=== PATIENT | male | born 1935 | race Caucasian/White ===

== ENCOUNTER 2021-08-14 19:27 | Inpatient (IN) | payer BC, MEDICARE ==
[2021-08-14] MEDS ORDERED: SODIUM CHLORIDE 0.9% 1,000 ML IV STA (21:31)
[2021-08-14] MEDS ORDERED: ONDANSETRON 4 MG/2 ML VIAL IVP STA (21:31)
[2021-08-14] MEDS ORDERED: MORPHINE SULFATE 4 MG/ML SYRINGE IV STA (21:31)
[2021-08-14 21:56] LABS: Basophils % (A) 0 %; Eosinophils # (A) 0.1 k/uL (0-0.7); Eosinophils % (A) 1 %; HCT 36.3 % (39.0-53.0); HGB 12.3 gm/dL (13.0-17.5); Lymphocytes # (A) 0.7 k/uL (1.0-4.8); Lymphocytes % (A) 7 %; MCH 32.7 pg (25.0-35.0); MCHC 33.9 g/dL (31.0-37.0); MCV 96.5 fL (80.0-100.0); Mean Platelet Volume 7.5; Monocytes # (A) 0.7 k/uL (0-1.0); Monocytes % (A) 8 %; Neutrophils # (A) 7.6 k/uL (1.3-7.7); Neutrophils % (A) 82 %; Platelet Count 217 k/uL (150-450); RBC 3.76 m/uL (4.30-5.90); RDW 13.7 % (11.5-15.5); WBC 9.3 k/uL (3.8-10.6)
[2021-08-14 22:07] LABS: Calcium 9.1 mg/dL (8.4-10.2); Magnesium 1.9 mg/dL (1.6-2.3); Phosphorus 2.7 mg/dL (2.5-4.5); Potassium 4.9 mmol/L (3.5-5.1); Total Bilirubin 0.5 mg/dL (0.2-1.3); Total Protein 7.7 g/dL (6.3-8.2)
--- NOTE | 2021-08-14 22:59 | ED ---
Abdominal Pain HPI - General Chief Complaint: Abdominal Pain Stated Complaint: RT side pain, SOB Time Seen by Provider: 08/14/21 21:21 Source: patient Mode of arrival: wheelchair Limitations: no limitations - Related Data Home Medications Medication Instructions Recorded Confirmed Albuterol Inhaler [Ventolin Hfa 2 puff INHALATION RT-QID PRN 08/14/21 08/14/21 Inhaler] Dipyridamole [Persantine] 75 mg PO BID 08/14/21 08/14/21 Enalapril Maleate 10 mg PO DAILY 08/14/21 08/14/21 HYDROcodone/APAP 10-325MG [[place] 1 tab PO QID PRN 08/14/21 08/14/21 10-325] Simvastatin [Zocor] 20 mg PO DAILY 08/14/21 08/14/21 Tamsulosin HCl [Flomax] 0.4 mg PO DAILY 08/14/21 08/14/21 Allergies Allergy/AdvReac Type Severity Reaction Status Date / Time No Known Allergies Allergy Verified 08/14/21 23:16 Review of Systems ROS Statement: Those systems with pertinent positive or pertinent negative responses have been documented in the HPI. ROS Other: All systems not noted in ROS Statement are negative. Past Medical History Past Medical History: Hypertension History of Any Multi-Drug Resistant Organisms: None Reported Past Surgical History: Back Surgery Past Psychological History: No Psychological Hx Reported Smoking Status: Former smoker Past Alcohol Use History: None Reported Past Drug Use History: None Reported General Exam Limitations: no limitations Course Vital Signs 08/14/21 08/14/21 08/14/21 21:10 22:29 22:40 Temperature 101.0 F H Pulse Rate 109 H 102 H Respiratory 22 18 Rate Blood Pressure 140/86 108/74 O2 Sat by Pulse 90 L 60 L Oximetry 08/14/21 08/15/21 22:45 00:55 Temperature 98.0 F Pulse Rate 106 H Respiratory 19 Rate Blood Pressure 103/54 O2 Sat by Pulse 94 L 96 Oximetry Medical Decision Making - Lab Data Result diagrams: 08/14/21 21:47 08/14/21 21:47 Lab Results 08/14/21 08/14/21 08/14/21 Range/Units 21:47 21:47 21:47 WBC 9.3 (3.8-10.6) k/uL RBC 3.76 L (4.30-5.90) m/uL Hgb 12.3 L (13.0-17.5) gm/dL Hct 36.3 L (39.0-53.0) % MCV 96.5 (80.0-100.0) fL MCH 32.7 (25.0-35.0) pg MCHC 33.9 (31.0-37.0) g/dL RDW 13.7 (11.5-15.5) % Plt Count 217 (150-450) k/uL MPV 7.5 Neutrophils % 82 % Lymphocytes % 7 % Monocytes % 8 % Eosinophils % 1 % Basophils % 0 % Neutrophils # 7.6 (1.3-7.7) k/uL Lymphocytes # 0.7 L (1.0-4.8) k/uL Monocytes # 0.7 (0-1.0) k/uL Eosinophils # 0.1 (0-0.7) k/uL Basophils # 0.0 (0-0.2) k/uL D-Dimer (<0.60) mg/L FEU Sodium 139 (137-145) mmol/L Potassium 4.9 (3.5-5.1) mmol/L Chloride 102 (98-107) mmol/L Carbon Dioxide 30 (22-30) mmol/L Anion Gap 7 mmol/L BUN 47 H (9-20) mg/dL Creatinine 1.96 H (0.66-1.25) mg/dL Est GFR (CKD-EPI)AfAm 36 (>60 ml/min/1.73 sqM) Est GFR (CKD-EPI)NonAf 31 (>60 ml/min/1.73 sqM) Glucose 126 H (74-99) mg/dL Plasma Lactic Acid Tejinder 1.4 (0.7-2.0) mmol/L Calcium 9.1 (8.4-10.2) mg/dL Phosphorus 2.7 (2.5-4.5) mg/dL Magnesium 1.9 (1.6-2.3) mg/dL Total Bilirubin 0.5 (0.2-1.3) mg/dL AST 22 (17-59) U/L ALT 16 (4-49) U/L Alkaline Phosphatase 103 (38-126) U/L Lactate Dehydrogenase (313-618) U/L C-Reactive Protein (<1.0) mg/dL Total Protein 7.7 (6.3-8.2) g/dL Albumin 4.0 (3.5-5.0) g/dL Amylase 98 (30-110) U/L Lipase 241 (23-300) U/L Coronavirus (PCR) (Not Detectd) 08/14/21 08/14/21 08/14/21 Range/Units 21:47 23:56 23:58 WBC (3.8-10.6) k/uL RBC (4.30-5.90) m/uL Hgb (13.0-17.5) gm/dL Hct (39.0-53.0) % MCV (80.0-100.0) fL MCH (25.0-35.0) pg MCHC (31.0-37.0) g/dL RDW (11.5-15.5) % Plt Count (150-450) k/uL MPV Neutrophils % % Lymphocytes % % Monocytes % % Eosinophils % % Basophils % % Neutrophils # (1.3-7.7) k/uL Lymphocytes # (1.0-4.8) k/uL Monocytes # (0-1.0) k/uL Eosinophils # (0-0.7) k/uL Basophils # (0-0.2) k/uL D-Dimer 1.89 H (<0.60) mg/L FEU Sodium (137-145) mmol/L Potassium (3.5-5.1) mmol/L Chloride (98-107) mmol/L Carbon Dioxide (22-30) mmol/L Anion Gap mmol/L BUN (9-20) mg/dL Creatinine (0.66-1.25) mg/dL Est GFR (CKD-EPI)AfAm (>60 ml/min/1.73 sqM) Est GFR (CKD-EPI)NonAf (>60 ml/min/1.73 sqM) Glucose (74-99) mg/dL Plasma Lactic Acid Tejinder (0.7-2.0) mmol/L Calcium (8.4-10.2) mg/dL Phosphorus (2.5-4.5) mg/dL Magnesium (1.6-2.3) mg/dL Total Bilirubin (0.2-1.3) mg/dL AST (17-59) U/L ALT (4-49) U/L Alkaline Phosphatase (38-126) U/L Lactate Dehydrogenase 459 (313-618) U/L C-Reactive Protein 3.8 H (<1.0) mg/dL Total Protein (6.3-8.2) g/dL Albumin (3.5-5.0) g/dL Amylase (30-110) U/L Lipase (23-300) U/L Coronavirus (PCR) Not Detected (Not Detectd) Disposition Clinical Impression: Fever, Abdominal pain, Hypoxia, ARF (acute renal failure) Disposition: ADMITTED IP TO THIS [facility] Condition: Serious Is patient prescribed a controlled substance at d/c from ED?: No Referrals: Randi Ruiz DO [Primary Care Provider] - 1-2 days
[2021-08-14] MEDS ORDERED: ACETAMINOPHEN TAB 500 MG TAB PO STA (23:16)
[2021-08-14] MEDS ORDERED: HYDROmorphone 1 MG/ML 1 ML SYRINGE IVP STA (23:16)
--- NOTE | 2021-08-14 23:50 | CT ---
EXAMINATION TYPE: CT abdomen pelvis wo con DATE OF EXAM: 08/14/2021 COMPARISON: Abdominal pain HISTORY: right side abd pain that radiates to back CT DLP: 1023.4 mGycm Automated exposure control for dose reduction was used. Images obtained from the diaphragm to the floor the pelvis with no contrast. There are some patchy infiltrate and atelectasis at both lung bases. Heart size is normal. There is n o pericardial effusion. There is no pleural effusion. Liver is intact. Gallbladder is intact. The bile ducts are not dilated. Spleen is intact. There is no evidence of pancreatic mass. Stomach shows small hiatal hernia. There is no adrenal mass. Kidneys have normal size. There is no hydronephrosis. Ureters are not dilat ed. There is no retroperitoneal adenopathy. Bladder distends smoothly. There is no inguinal hernia. There are multiple sigmoid diverticula. There is no sign of diverticulitis. Appendix not seen. No sign of thickened appendix. There is no mesenteric edema. There is no ascites or free air. There is no sign of a bowel obstructio n. There is moderately severe multilevel lumbar spondylotic changes. There is compression deformity of L 3 vertebra and also to a lesser extent L2 vertebra. There is endplate spurring and encroachment on th e spinal canal. There is laminectomy defect at the level of the encroachment. There is moderately sev ere bony spinal stenosis. There is calcified posterior disc herniation at L2-3 and L3-4. The bony pelvis is intact. The hip joints are intact. There is slight lumbar levoscoliosis. IMPRESSION: Mild interstitial infiltrates and atelectasis at the lung bases. No acute abnormality within the abdomen pelvis. Sigmoid diverticulosis. Significant spondylotic changes in the lumbar spine with bony spinal stenosis and osteosclerosis and mild compression deformities.
--- NOTE | 2021-08-15 00:02 | XR ---
EXAMINATION TYPE: XR chest 1V portable DATE OF EXAM: 08/14/2021 COMPARISON: NONE HISTORY: Short of breath TECHNIQUE: Single view FINDINGS: There is some mild atelectasis at the lung bases. There is no heart failure. Heart size is fairly normal. There are no hilar masses. Thoracic aorta is atheromatous. There is moderate arthritic change in the shoulder joints. IMPRESSION: There is some mild atelectasis at the lung bases and more on the right side. Minimal righ t basilar pulmonary infiltrate is possible.
[2021-08-15 00:53] LABS: C Reactive Protein 3.8 mg/dL (<1.0)
[2021-08-15] MEDS ORDERED: HEPARIN SODIUM 1,000 UN/ML (10ML VL) IV PRN (01:30)
[2021-08-15] MEDS ORDERED: ALBUTEROL NEBULIZED 2.5 MG/3 ML INHALATION STA (01:30)
[2021-08-15] MEDS ORDERED: HEPARIN SODIUM 1,000 UN/ML (10ML VL) IV ONE (01:30)
[2021-08-15] MEDS ORDERED: NALOXONE 0.4 MG/ML 1 ML VIAL IV PRN (01:32)
[2021-08-15] MEDS ORDERED: ONDANSETRON 4 MG/2 ML VIAL IVP PRN (01:32)
[2021-08-15] MEDS ORDERED: MORPHINE SULFATE 4 MG/ML SYRINGE IV PRN (01:32)
[2021-08-15] MEDS: HEPARIN SOD,PORK IN 0.45% NACL 25,000 UNIT in 0.45% NACL 1 250ML.BAG IV SCH ×2 (01:48→23:26)
[2021-08-15 02:11] LABS: Appearance,Urine Clear (Clear); Bilirubin,Urine Negative (Negative); Blood,Urine Negative (Negative); Color,Urine Light Yellow; Glucose,Urine (UA) Negative (Negative); Ketones,Urine Negative (Negative); Leukocyte Esterase,Urine Negative (Negative); Nitrite,Urine Negative (Negative); Protein,Urine Negative (Negative); Specific Gravity,Urine 1.008 (1.001-1.035); Urobilinogen,Urine <2.0 mg/dL (<2.0)
[2021-08-15] MEDS: SODIUM CHLORIDE 0.9% 1,000 ML IV SCH ×3 (02:56→23:28)
--- NOTE | 2021-08-15 07:47 | US ---
EXAMINATION TYPE: US venous doppler duplex LE BI DATE OF EXAM: 08/15/2021 7:30 AM COMPARISON: NONE CLINICAL HISTORY: DVT. Elevated D-Dimer SIDE PERFORMED: bilateral TECHNIQUE: The lower extremity deep venous system is examined utilizing real time linear array sonog pipo with graded compression, doppler sonography and color-flow sonography. VESSELS IMAGED: Common Femoral Vein Deep Femoral Vein Greater Saphenous Vein * Femoral Vein Popliteal Vein Small Saphenous Vein * Proximal Calf Veins (* superficial vessels) Right Leg: no evidence of DVT Left Leg: no evidence of DVT Grayscale, color doppler, spectral doppler imaging performed of the deep veins of the bilateral lower extremities. There is normal flow, compressibility, vascular waveforms. IMPRESSION: No ultrasound evidence for acute DVT in either lower extremity.
--- NOTE | 2021-08-15 07:50 | US ---
EXAMINATION TYPE: US abdomen APPY DATE OF EXAM: 08/15/2021 COMPARISON: CT abdomen and pelvis one day earlier CLINICAL HISTORY: Pain. RLQ pain APPENDIX Is the appendix seen in its entirety from the proximal cecum to distal end: no Is there inflammatory changes or free fluid present: no Scanning of the right lower quadrant fails to show normal or abnormal appendix. No suspicious focal f luid collection or vascularity/inflammatory change the seen during real-time scanning. Color imaging not saved to PACS. Appendix not well seen on corresponding CT felt to be very small caliber extending inferiorly. No kelvin rounding inflammatory change noted on CT and patient has good surrounding intraperitoneal fat includi ng at base of cecum. IMPRESSION: As above.
--- NOTE | 2021-08-15 08:52 | NM ---
EXAMINATION TYPE: NM pul perfusion DATE OF EXAM: 08/15/2021 COMPARISON: Chest x-ray 08/14/2021 HISTORY: Shortness of breath Following administration of 5.1 mCi Tc 99m MAA. Images obtained post injection. FINDINGS: No ventilation images are submitted. There is a perfusion defect within the right lung. Without venti lation images probability cannot be assessed. IMPRESSION: There is a perfusion abnormality within the lateral margin of the right lung. Pulmonary embolism in t he differential diagnosis.
[2021-08-15] MEDS: PANTOPRAZOLE 40 MG/10 ML VIAL IV SCH (08:54)
--- NOTE | 2021-08-15 11:17 | P.CNPUL ---
History of Present Illness Consult date: 08/15/21 Reason for consult: hypoxemia History of present illness: This is an 85-year-old male patient, who was brought into the emergency department today because of pain. According to the family was at the bedside, his pain is chronic and the patient has diffuse pain and more specifically in his lower back for many years. The patient undergone previous spine surgery and the patient has a pain stimulator in place that was inserted at least 5 years ago. Nevertheless, the patient has been under poor control and the patient has been taking Shirley for pain control. Over the past 2 days, the pain has gotten worse. The exact location of the pain is not clear. The patient was pointing to his abdomen mostly on the right. At the same time he pointed out to his neck and upper back area. He is a very unreliable historian. In fact I feel like he is confused at this point in time and is unable to provide any history. His does work and when she came home from work she found them and this condition she opted to bring him to the hospital. Here in the hospital, the patient has started on some further investigation. The patient was found to be febrile at the time of admission. Note that he has no seizure activity. No neck stiffness. No focal neurological deficit. At time he is shaking and is a bit restless in bed. A white cell count of 9.3 with hemoglobin of 12.3, d-dimer was at 1.89, electrolytes were normal and the patient a BUN of 47 with a creatinine of 1.96 consistent with an acute kidney injury. Lactic acid level is at 1.4, LFTs are normal, UA is normal,COVID 19 testing came back negative. Chest x-ray showed some limited atelectatic changes in lung base on the right. No evidence of any pneumonia. VQ scan showed some perfusion defect abnormalities and for that reason the patient was started on IV heparin. Stephanie gleason, the presentation is not typical of pulmonary embolism and the patient has a Doppler of the lower extremity that has been negative for any DVTs. No reported falls. No reported head trauma. No significant cough or sputum production. No nausea. No vomiting. No diarrhea. No abdominal pain. Amylase and lipase have been within normal limits. LFTs are within normal limits. Glucose at 126. Patient is currently on IV fluids in the form of normal saline at the rate of 75 mL an hour and the patient is also on IV heparin per emergency room physicians. Review of Systems ROS unobtainable: due to mental status Past Medical History Past Medical History: Hypertension, Musculoskeletal Disorder (chronic back pain, pain stimulator), Prostate Disorder History of Any Multi-Drug Resistant Organisms: None Reported Past Surgical History: Back Surgery Past Psychological History: No Psychological Hx Reported Smoking Status: Former smoker Past Alcohol Use History: None Reported Past Drug Use History: None Reported Medications and Allergies Home Medications Medication Instructions Recorded Confirmed Type Albuterol Inhaler [Ventolin Hfa 2 puff INHALATION RT-QID PRN 08/14/21 08/14/21 History Inhaler] Dipyridamole [Persantine] 75 mg PO BID 08/14/21 08/14/21 History Enalapril Maleate 10 mg PO DAILY 08/14/21 08/14/21 History HYDROcodone/APAP 10-325MG [Shirley 1 tab PO QID PRN 08/14/21 08/14/21 History 10-325] Simvastatin [Zocor] 20 mg PO DAILY 08/14/21 08/14/21 History Tamsulosin HCl [Flomax] 0.4 mg PO DAILY 08/14/21 08/14/21 History Allergies Allergy/AdvReac Type Severity Reaction Status Date / Time No Known Allergies Allergy Verified 08/14/21 23:16 Physical Exam Vitals: Vital Signs Temp Pulse Pulse Resp BP BP Pulse Ox 08/15/21 08:00 96 08/15/21 06:02 96 92 L 08/15/21 05:25 98.4 F 124 H 18 124/74 90 L 08/15/21 04:21 97.5 F L 146 H 18 142/100 95 08/15/21 02:42 104 H 08/15/21 02:36 101 H 08/15/21 00:55 98.0 F 106 H 19 103/54 96 08/14/21 22:45 94 L 08/14/21 22:40 60 L 08/14/21 22:29 102 H 18 108/74 08/14/21 21:10 101.0 F H 109 H 22 140/86 90 L Intake and Output 08/14/21 08/15/21 08/15/21 22:59 06:59 14:59 Other: Weight 79.379 kg the patient is oriented to his . Nevertheless, he is unable to answer questions appropriately. At times he is more confused and shaky and restless in bed. For that reason, I will give he is 1-2 at max. Head exam was generally normal. There was no scleral icterus or corneal arcus. Mucous membranes were moist. Neck was supple and without jugular venous distension, thyromegaly, or carotid bruits. Carotids were easily palpable bilaterally. There was no adenopathy. Lungs sounds are diminished breath sound and the patient has symmetrical breath sounds bilaterally. Cardiac exam revealed the PMI to be normally situated and sized. The rhythm was regular and no extrasystoles were noted during several minutes of auscultation. The first and second heart sounds were normal and physiologic splitting of the second heart sound was noted. There were no murmurs, rubs, clicks, or gallops. Abdominal exam revealed normal bowel sounds. The abdomen was soft, non-tender, and without masses, organomegaly, or appreciable enlargement of the abdominal aorta. The patient has a pain stimulator pocket over the left lateral anterior abdominal wall Examination of the extremities revealed easily palpable radial, femoral and pedal pulses. There was no cyanosis, clubbing or edema. Examination of the skin revealed no evidence of significant rashes, suspicious appearing nevi or other concerning lesions. Neurologically the patient is confused, his speech is slightly garbled. No focal neurological deficits. He is able to move all 4 extremities. Gait has not been assessed. Motor function is obviously diminished in all 4 extremities and there is global weakness. Pupils are equal reactive to light. Results - Laboratory Findings CBC and BMP: 08/14/21 21:47 08/14/21 21:47 PT/INR, D-dimer D-Dimer 1.89 mg/L FEU (<0.60) H 08/14/21 23:58 Abnormal lab findings: Abnormal Labs 08/14/21 08/14/21 08/14/21 21:47 21:47 21:47 RBC 3.76 L Hgb 12.3 L Hct 36.3 L Lymphocytes # 0.7 L APTT D-Dimer BUN 47 H Creatinine 1.96 H Glucose 126 H C-Reactive Protein 3.8 H 08/14/21 08/15/21 23:58 08:54 RBC Hgb Hct Lymphocytes # APTT 34.7 H D-Dimer 1.89 H BUN Creatinine Glucose C-Reactive Protein - Diagnostic Findings Chest x-ray: image reviewed Assessment and Plan Plan: 1 Acute febrile illness on that investigation. The patient was also noted to be slightly hypoxic. Further investigation was done for pulmonary embolism. Overall clinical suspicion for PE is low. D-dimer is mildly elevated. Doppler of the lower extremity has been negative. CT angiogram and not been done as the patient has an underlying acute kidney injury. Underlying pneumonia of the right lower lobe cannot be completely excluded. The patient will be kept on a combination of Rocephin and Zithromax for now. IV heparin was also initiated at the emergency department. Further investigations to follow. Pronestyl level is pending. 2 chronic back pain in addition to diffuse body aches and furthermore the patien t is complaining of neck and mid thoracic pain along with his chronic back pain. The patient has a pain stimulator to his lumbar spine. No indication of any swelling or erythema along the spine. This is to be further investigated. The patient has been taking Shirley on outpatient basis. No evidence of any drug overdose at this point in time 3 altered mentation, that investigation 4 acute kidney injury. 5 history of hypertension 6 hyperlipidemia 7 BPH Plan Continue with oxygen supplementation Continue IV heparin pending further workup and I would like to go obtain a CT angiogram once the patient's renal function stabilizes Normal saline at the rate of 75 mL an hour IV Rocephin and Zithromax CAT scan of the C-spine, thoracic spine and the lumbar spine, without contrast Computed tomography scan of the head without contrast Urine drug screen Blood cultures Neurology consultation We'll continue to follow
[2021-08-15] MEDS: ACETAMINOPHEN TAB 325 MG TAB PO PRN (11:46)
--- NOTE | 2021-08-15 13:12 | P.GSCN ---
History of Present Illness Consult date: 08/15/21 History of present illness: CHIEF COMPLAINT: Abdominal pain and shortness of breath HISTORY OF PRESENT ILLNESS: The patient is a 85-year-old male who presented to the emergency department with complaints of abdominal pain and shortness of breath. He has a past medical history including hypertension. Gen. surgery was consulted for abdominal pain. He states that began approximately one week ago, the pain has been intermittent and described as a sharp pain mostly in his right lower quadrant. Patient states he actually has no pain at this time. He denied any fevers or chills at home. Denied any associated nausea or vomiting. He reports his last bowel movement on Thursday. He states he normally goes daily however he states that he has been feeling slightly constipated the last week or so. On admission he was noted to have a max temperature of 101.0. He presented with hypoxia and is on a clear liters of nasal cannula with saturation at 92%. He states his last colonoscopy was greater than 5 years ago and does not believe it was significant for any abnormal findings. Patient was noted to have an elevated d-dimer on admission and a pulmonary perfusion study was performed stating perfusion abnormality within the lateral margin of the right lung. Pulmonary embolism in the differential diagnosis. Patient underwent a CT of the abdomen and pelvis with findings of mild interstitial infiltrates and atelectasis at the lung bases. No acute abnormality within the abdomen and pelvis. Sigmoid diverticulosis. Admitting labs WBC 9.3 hemoglobin 12.3 platelet count 217,000 d-dimer was 1.9 sodium 139 potassium 4.9 BUN 47 creatinine 1.96 glucose 126 total bilirubin 0.5 AST 22 ALT 16 103 PAST MEDICAL HISTORY: Hypertension, chronic low back pain PAST SURGICAL HISTORY: Back surgery, pain stimulator MEDICATIONS: See list. ALLERGIES: See list. SOCIAL HISTORY: No illicit drug use. Former smoker REVIEW OF SYSTEMS: CONSTITUTIONAL: Denies fever or chills. HEENT: Denies blurred vision, vision changes, or eye pain. Denies hemoptysis ENDOCRINE: Denies heat or cold intolerance. CARDIOVASCULAR: Denies chest pain or pressure. RESPIRATORY: No shortness of breath. GASTROINTESTINAL: Abdominal pain, right lower quadrant. Denies nausea or vomiting. NEURO: Denies history of seizures. PSYCH: No depression or suicidal ideation HEMATOLOGIC: Denies bleeding disorders. LYMPHATIC: The patient denies any lumps and bumps around the neck. GENITOURINARY: Denies any blood in urine or increased urinary frequency. MUSCULOSKELETAL: Denies myalgias. Denies joint swelling. Chronic low back pain. Worsening SKIN: Denies pruitis. Denies rash. PHYSICAL EXAM: VITAL SIGNS: Reviewed GENERAL: Well-developed in no acute distress. HEENT: No sclera icterus. Extraocular movements grossly intact. Moist buccal mucosa. Head is atraumatic, normocephalic. Hears conversational speech. No nasal drainage. NECK: Supple without lymphadenopathy. CHEST: Non-labored respirations and equal bilateral excursions. CARDIOVASCULAR: Palpable 2+ radial pulses. ABDOMEN: Soft. Nondistended. Mild tenderness right lower quadrant. MUSCULOSKELETAL: No clubbing or cyanosis. NEUROLOGIC: No focal or lateralizing signs. Cranial nerves II through XII grossly intact. PSYCH: Appropriate affect. Alert and oriented to person, place and time. SKIN: Well perfused. Good skin turgor. LABORATORY DATA: WBC 9.3 hemoglobin 12.3 platelet count 217,000 d-dimer 1.89 Sodium 139 potassium 4.9 BUN 47 creatinine 1.96 glucose 126 magnesium 1.9 Total bilirubin 0.5 AST 22 ALT 16 alkaline phosphatase 103 amylase 98 lipase 241 C reactive protein 3.8 IMAGING: CT abdomen pelvis: Mild interstitial infiltrates and atelectasis at the lung bases. No acute abnormality within the abdomen and pelvis. Sigmoid diverticulosis. Significant spondylytic changes in the lumbar spine with bony spinal stenosis and osteosclerosis and mild compression deformities Abdominal ultrasound Limited: Right lower quadrant fails to show normal or abnormal appendix. No suspicious focal fluid collection or vascularity/inflammatory change seen during real-time scanning. ASSESSMENT: 1. Abdominal pain 2. Fever 3. Hypoxia 4. Pulmonary perfusion scan low probability of pulmonary embolism 5. Chronic back pain PLAN: -Patient may have regular diet -Patient is clinically improved with abdominal pain, there is no indication for any surgical intervention. -We'll continue to follow The impression and plan of care has been dictated as directed. Dr. Catherine I performed a history and examination of this patient, discussed the same with the dictator. I agree with the dictator's note ,documented as a scribe. Any additional findings or plans will be noted. Past Medical History Past Medical History: Hypertension History of Any Multi-Drug Resistant Organisms: None Reported Past Surgical History: Back Surgery Past Psychological History: No Psychological Hx Reported Smoking Status: Former smoker Past Alcohol Use History: None Reported Past Drug Use History: None Reported Medications and Allergies Home Medications Medication Instructions Recorded Confirmed Type Albuterol Inhaler [Ventolin Hfa 2 puff INHALATION RT-QID PRN 08/14/21 08/14/21 History Inhaler] Dipyridamole [Persantine] 75 mg PO BID 08/14/21 08/14/21 History Enalapril Maleate 10 mg PO DAILY 08/14/21 08/14/21 History HYDROcodone/APAP 10-325MG [[place] 1 tab PO QID PRN 08/14/21 08/14/21 History 10-325] Simvastatin [Zocor] 20 mg PO DAILY 08/14/21 08/14/21 History Tamsulosin HCl [Flomax] 0.4 mg PO DAILY 08/14/21 08/14/21 History Allergies Allergy/AdvReac Type Severity Reaction Status Date / Time No Known Allergies Allergy Verified 08/14/21 23:16 Surgical - Exam Vital Signs Temp Pulse Resp BP Pulse Ox 101.0 F H 109 H 22 140/86 90 L 08/14/21 21:10 08/14/21 21:10 08/14/21 21:10 08/14/21 21:10 08/14/21 21:10 Results - Labs 08/14/21 21:47 08/14/21 21:47 Abnormal Lab Results - Last 24 Hours (Table) 08/14/21 08/14/21 08/14/21 Range/Units 21:47 21:47 21:47 RBC 3.76 L (4.30-5.90) m/uL Hgb 12.3 L (13.0-17.5) gm/dL Hct 36.3 L (39.0-53.0) % Lymphocytes # 0.7 L (1.0-4.8) k/uL D-Dimer (<0.60) mg/L FEU BUN 47 H (9-20) mg/dL Creatinine 1.96 H (0.66-1.25) mg/dL Glucose 126 H (74-99) mg/dL C-Reactive Protein 3.8 H (<1.0) mg/dL 08/14/21 Range/Units 23:58 RBC (4.30-5.90) m/uL Hgb (13.0-17.5) gm/dL Hct (39.0-53.0) % Lymphocytes # (1.0-4.8) k/uL D-Dimer 1.89 H (<0.60) mg/L FEU BUN (9-20) mg/dL Creatinine (0.66-1.25) mg/dL Glucose (74-99) mg/dL C-Reactive Protein (<1.0) mg/dL Diabetes panel 08/14/21 Range/Units 21:47 Sodium 139 (137-145) mmol/L Potassium 4.9 (3.5-5.1) mmol/L Chloride 102 (98-107) mmol/L Carbon Dioxide 30 (22-30) mmol/L BUN 47 H (9-20) mg/dL Creatinine 1.96 H (0.66-1.25) mg/dL Glucose 126 H (74-99) mg/dL Calcium 9.1 (8.4-10.2) mg/dL AST 22 (17-59) U/L ALT 16 (4-49) U/L Alkaline Phosphatase 103 (38-126) U/L Total Protein 7.7 (6.3-8.2) g/dL Albumin 4.0 (3.5-5.0) g/dL Calcium panel 08/14/21 Range/Units 21:47 Calcium 9.1 (8.4-10.2) mg/dL Phosphorus 2.7 (2.5-4.5) mg/dL Albumin 4.0 (3.5-5.0) g/dL Pituitary panel 08/14/21 Range/Units 21:47 Sodium 139 (137-145) mmol/L Potassium 4.9 (3.5-5.1) mmol/L Chloride 102 (98-107) mmol/L Carbon Dioxide 30 (22-30) mmol/L BUN 47 H (9-20) mg/dL Creatinine 1.96 H (0.66-1.25) mg/dL Glucose 126 H (74-99) mg/dL Calcium 9.1 (8.4-10.2) mg/dL Adrenal panel 08/14/21 Range/Units 21:47 Sodium 139 (137-145) mmol/L Potassium 4.9 (3.5-5.1) mmol/L Chloride 102 (98-107) mmol/L Carbon Dioxide 30 (22-30) mmol/L BUN 47 H (9-20) mg/dL Creatinine 1.96 H (0.66-1.25) mg/dL Glucose 126 H (74-99) mg/dL Calcium 9.1 (8.4-10.2) mg/dL Total Bilirubin 0.5 (0.2-1.3) mg/dL AST 22 (17-59) U/L ALT 16 (4-49) U/L Alkaline Phosphatase 103 (38-126) U/L Total Protein 7.7 (6.3-8.2) g/dL Albumin 4.0 (3.5-5.0) g/dL
--- NOTE | 2021-08-15 21:45 | P.HPIM ---
History of Present Illness H&P Date: 08/15/21 Chief Complaint: pain, fever Nikolai Shabazz is an 85 yo M with PMH of HLD, chronic back pain who presented to the ED with worsening pain over the past few days as well as cough and fever. He states that he has been experiencing R sided abdominal pain for approximately 4 days, reports it comes and goes and currently is not present. He denies nausea, vomiting, constipation or diarrhea. he does complains of chronic back pain for which he takes [place]. He states in the last day or so he developed sweats and cough in addition to his pain and his brought him in for ev aluation. On presentation he was febrile, tachycardic, WBC 9.3, Cr 1.96, pro- calcitonin 0.15. CT abd/pelvis with no acute process, sigmoid diverticulosis. D- dimer elevated to 1.89, V/Q scan performed and possible filling defect. Review of Systems All systems: negative Constitutional: Reports fever, Reports malaise, Reports weakness, Denies chills Eyes: denies blurred vision, denies pain Ears, nose, mouth and throat: Denies headache, Denies sore throat Cardiovascular: Denies chest pain, Denies shortness of breath Respiratory: Reports cough Gastrointestinal: Denies abdominal pain, Denies diarrhea, Denies nausea, Denies vomiting Musculoskeletal: Denies myalgias Integumentary: Denies pruritus, Denies rash Neurological: Denies numbness, Denies weakness Psychiatric: Denies anxiety, Denies depression Endocrine: Denies fatigue, Denies weight change Past Medical History Past Medical History: Hypertension History of Any Multi-Drug Resistant Organisms: None Reported Past Surgical History: Back Surgery Past Psychological History: No Psychological Hx Reported Smoking Status: Former smoker Past Alcohol Use History: None Reported Past Drug Use History: None Reported Medications and Allergies Home Medications Medication Instructions Recorded Confirmed Type Albuterol Inhaler [Ventolin Hfa 2 puff INHALATION RT-QID PRN 08/14/21 08/14/21 History Inhaler] Dipyridamole [Persantine] 75 mg PO BID 08/14/21 08/14/21 History Enalapril Maleate 10 mg PO DAILY 08/14/21 08/14/21 History HYDROcodone/APAP 10-325MG [[place] 1 tab PO QID PRN 08/14/21 08/14/21 History 10-325] Simvastatin [Zocor] 20 mg PO DAILY 08/14/21 08/14/21 History Tamsulosin HCl [Flomax] 0.4 mg PO DAILY 08/14/21 08/14/21 History Allergies Allergy/AdvReac Type Severity Reaction Status Date / Time No Known Allergies Allergy Verified 08/14/21 23:16 Physical Exam Vitals: Vital Signs Temp Pulse Pulse Resp BP BP Pulse Ox 08/15/21 20:00 99.2 F 96 18 118/88 96 08/15/21 17:43 78 18 114/69 98 08/15/21 15:32 80 20 96/58 96 08/15/21 13:16 99.8 F H 101 H 18 95/59 89 L 08/15/21 11:45 119/95 08/15/21 11:43 102 F H 112 H 18 90 L 08/15/21 08:00 96 08/15/21 06:02 96 92 L 08/15/21 05:25 98.4 F 124 H 18 124/74 90 L 08/15/21 04:21 97.5 F L 146 H 18 142/100 95 08/15/21 02:42 104 H 08/15/21 02:36 101 H 08/15/21 00:55 98.0 F 106 H 19 103/54 96 08/14/21 22:45 94 L 08/14/21 22:40 60 L 08/14/21 22:29 102 H 18 108/74 Intake and Output 08/15/21 08/15/21 08/15/21 06:59 14:59 22:59 Intake Total 217.892 Balance 217.892 Intake: Intake, IV Titration 217.892 Amount Heparin Sod,Pork in 0.45% 217.892 NaCl 25,000 unit In 0.45 % NaCl 1 250ml.bag @ 18 UNITS/KG/HR 14.288 mls/hr IV .[id number] [facility] Rx#: [id number] General: well nourished, well developed, NAD. Vitals reviewed Eyes: PERRL, EOMI, conjunctiva normal HENT: normocephalic, mucus membranes moist Neck: supple, no JVD Lungs: normal respiratory effort, no wheezes or rales CV: Regular rate and rhythm, no murmur. Peripheral pulses 2+ Abdomen: soft, nondistended, no organomegaly Lymph: no cervical or axillary LAD Skin: warm and dry. Neuro: A&Ox3, normal mood and affect Results CBC & Chem 7: 08/14/21 21:47 08/14/21 21:47 Labs: Abnormal Lab Results - Last 24 Hours (Table) 08/14/21 08/14/21 08/14/21 Range/Units 21:47 21:47 21:47 RBC 3.76 L (4.30-5.90) m/uL Hgb 12.3 L (13.0-17.5) gm/dL Hct 36.3 L (39.0-53.0) % Lymphocytes # 0.7 L (1.0-4.8) k/uL APTT (22.0-30.0) sec D-Dimer (<0.60) mg/L FEU BUN 47 H (9-20) mg/dL Creatinine 1.96 H (0.66-1.25) mg/dL Glucose 126 H (74-99) mg/dL C-Reactive Protein 3.8 H (<1.0) mg/dL Procalcitonin (0.02-0.09) ng/mL 08/14/21 08/14/21 08/15/21 Range/Units 21:47 23:58 08:54 RBC (4.30-5.90) m/uL Hgb (13.0-17.5) gm/dL Hct (39.0-53.0) % Lymphocytes # (1.0-4.8) k/uL APTT 34.7 H (22.0-30.0) sec D-Dimer 1.89 H (<0.60) mg/L FEU BUN (9-20) mg/dL Creatinine (0.66-1.25) mg/dL Glucose (74-99) mg/dL C-Reactive Protein (<1.0) mg/dL Procalcitonin 0.15 H (0.02-0.09) ng/mL Assessment and Plan Plan: 1. Community acquired pneumonia. Start rocephin, azithromycin. Pulmonology consult 2. Elevated d-dimer. Indeterminant V/Q scan. Possible PE. US for DVT negative a nd low suspicion at this time. Will plan for CTA with improvement in renal function. Continue heparin drip at this time 3. NEETA. IV fluids, follow labs closely 4. Abdominal pain. Suspect musculoskeletal. Surgery consult for further evaluation. No evidence of infection 5. Chronic back pain
[2021-08-15] MEDS ORDERED: AZITHROMYCIN 500 MG in SODIUM CHLORIDE 0.9% 250 ML IVPB SCH (22:00)
[2021-08-16] MEDS: SODIUM CHLORIDE 0.9% 1,000 ML IV SCH ×3 (04:20→17:19)
[2021-08-16 07:37] LABS: Basophils % (A) 0 %; Eosinophils % (A) 1 %; Lymphocytes # (A) 0.7 k/uL (1.0-4.8); Lymphocytes % (A) 14 %; MCH 33.2 pg (25.0-35.0); MCHC 32.9 g/dL (31.0-37.0); Macrocytosis Slight; Mean Platelet Volume 7.6; Monocytes # (A) 0.4 k/uL (0-1.0); Monocytes % (A) 8 %; Neutrophils # (A) 3.5 k/uL (1.3-7.7); Neutrophils % (A) 73 %; Platelet Count 159 k/uL (150-450); RBC 2.87 m/uL (4.30-5.90); RDW 13.5 % (11.5-15.5); WBC 4.8 k/uL (3.8-10.6)
[2021-08-16 07:45] LABS: HGB 9.5 gm/dL (13.0-17.5)
[2021-08-16 07:48] LABS: Albumin 2.9 g/dL (3.5-5.0); Calcium 8.1 mg/dL (8.4-10.2); Phosphorus 2.4 mg/dL (2.5-4.5); Potassium 4.9 mmol/L (3.5-5.1); Total Bilirubin 0.4 mg/dL (0.2-1.3)
[2021-08-16] MEDS: PANTOPRAZOLE 40 MG/10 ML VIAL IV SCH (09:41)
[2021-08-16] MEDS ORDERED: IPRATROPIUM-ALBUTEROL 3 ML NEB INHALATION PRN (10:28)
--- NOTE | 2021-08-16 10:49 | P.PN ---
Subjective Progress Note Date: 08/16/21 Nikolai Shabazz is an 85 yo M with PMH of HLD, chronic back pain who presented to the ED with worsening pain over the past few days as well as cough and fever. He states that he has been experiencing R sided abdominal pain for approximately 4 days, reports it comes and goes and currently is not present. He denies nausea, vomiting, constipation or diarrhea. he does complains of chronic back pain for which he takes [place]. He states in the last day or so he developed sweats and cough in addition to his pain and his brought him in for evaluation. On presentation he was febrile, tachycardic, WBC 9.3, Cr 1.96, pro- calcitonin 0.15. CT abd/pelvis with no acute process, sigmoid diverticulosis. D-dimer elevated to 1.89, V/Q scan performed and possible filling defect. 08/16/2021. RN reporting confusion throughout the night, patient pulling IVs out, taking off his oxygen at which time patient desatted to 86% on room air. Currently maintaining O2 sats in the 90s on 9 L. T-max 102, blood cultures ordered. Currently A & O X2. Telemetry sinus rhythm. Abdominal pain significantly improved. Evaluated by surgery with no surgical intervention recommended at this time. Anticoagulated on heparin drip, CTA remains on hold secondary to creatinine. Maintained on Rocephin and azithromycin. IV fluids currently running at 130/h, will decrease. Hemoglobin 9.5, platelets 159. Renal function improved, BUN 39 and creatinine 1.79. Objective - Vital Signs Vital signs: Vital Signs Temp 99.8 F H 08/16/21 07:30 Pulse 84 08/16/21 09:55 Resp 18 08/16/21 09:55 BP 114/69 08/16/21 09:55 Pulse Ox 92 L 08/16/21 09:55 Intake & Output 08/15/21 08/16/21 08/16/21 18:59 06:59 18:59 Intake Total 217.892 206.725 Balance 217.892 206.725 Intake: Intake, IV Titration 217.892 206.725 Amount Heparin Sod,Pork in 0.45% 217.892 106.725 NaCl 25,000 unit In 0.45 % NaCl 1 250ml.bag @ 18 UNITS/KG/HR 14.288 mls/hr IV .[id number] [facility] Rx#: [id number] cefTRIAXone 1 gm In 100 Sodium Chloride 0.9% 50 ml @ 100 mls/hr IVPB Q24H [facility] Rx#:[id number] - Exam General: Sitting up on stretcher, in the ER, NAD. Vitals reviewed Eyes: PERRL, EOMI, conjunctiva normal HENT: normocephalic, mucus membranes moist Neck: supple, no JVD Lungs: normal respiratory effort, bilateral bases diminished, no wheezes or r ales CV: Regular rate and rhythm, no murmur. Peripheral pulses 2+ Abdomen: soft, nondistended, nontender, no organomegaly,+BS Skin: warm and dry. Neuro: A&Ox2, normal mood and affect - Labs CBC & Chem 7: 08/16/21 06:58 08/16/21 06:58 Labs: Abnormal Lab Results - Last 24 Hours (Table) 08/14/21 08/15/21 08/16/21 Range/Units 21:47 23:41 06:58 RBC 2.87 L (4.30-5.90) m/uL Hgb 9.5 L D (13.0-17.5) gm/dL Hct 29.0 L (39.0-53.0) % MCV 101.0 H (80.0-100.0) fL Lymphocytes # 0.7 L (1.0-4.8) k/uL APTT 76.4 H (22.0-30.0) sec BUN (9-20) mg/dL Creatinine (0.66-1.25) mg/dL Calcium (8.4-10.2) mg/dL Phosphorus (2.5-4.5) mg/dL Total Protein (6.3-8.2) g/dL Albumin (3.5-5.0) g/dL Procalcitonin 0.15 H (0.02-0.09) ng/mL 08/16/21 08/16/21 Range/Units 06:58 06:58 RBC (4.30-5.90) m/uL Hgb (13.0-17.5) gm/dL Hct (39.0-53.0) % MCV (80.0-100.0) fL Lymphocytes # (1.0-4.8) k/uL APTT 35.7 H (22.0-30.0) sec BUN 39 H (9-20) mg/dL Creatinine 1.79 H (0.66-1.25) mg/dL Calcium 8.1 L (8.4-10.2) mg/dL Phosphorus 2.4 L (2.5-4.5) mg/dL Total Protein 6.0 L (6.3-8.2) g/dL Albumin 2.9 L (3.5-5.0) g/dL Procalcitonin (0.02-0.09) ng/mL Assessment and Plan Assessment: Acute community-acquired pneumonia, right lower lobe Acute hypoxic respiratory failure secondary to the above Fevers Delirium, Acute metabolic encephalopathy, secondary to all the above as well as ER, hospital environment. Elevated d-dimer with indeterminate VQ scan, possible PE. Low suspicion. NEETA Abdominal pain, suspect muscloskeletal Chronic back pain BPH History of nicotine dependence Plan: Continue current medication regime ,monitoring and symptomatic treatment. Persistent fevers, T-max 102, Blood cultures ordered. Continue dual antibiotics with both azithromycin and ceftriaxone. Decrease IV fluids down to 80 mL's per hour. Pro-calcitonin level pending. Maintain anticoagulation with heparin drip at this time, CTA pending improvement in renal function. Morphine discontinued, home pain management resumed.Close monitoring of renal function with repeat labs ordered for a.m. The impression and plan of care has been dictated as directed. : I performed a history and examination of this patient, discussed the same with the dictator. I agree with the dictator's note ,documented as a scribe. Any additional findings or plans will be noted.
--- NOTE | 2021-08-16 11:25 | P.PN ---
Subjective Progress Note Date: 08/16/21 This is an 85-year-old male patient, who was brought into the emergency departm ent today because of pain. According to the family was at the bedside, his pain is chronic and the patient has diffuse pain and more specifically in his lower back for many years. The patient undergone previous spine surgery and the patient has a pain stimulator in place that was inserted at least 5 years ago. Nevertheless, the patient has been under poor control and the patient has been taking Benjamin for pain control. Over the past 2 days, the pain has gotten worse. The exact location of the pain is not clear. The patient was pointing to his abdomen mostly on the right. At the same time he pointed out to his neck and upper back area. He is a very unreliable historian. In fact I feel like he is confused at this point in time and is unable to provide any history. His does work and when she came home from work she found them and this condition she opted to bring him to the hospital. Here in the hospital, the patient has started on some further investigation. The patient was found to be febrile at the time of admission. Note that he has no seizure activity. No neck sti ffness. No focal neurological deficit. At time he is shaking and is a bit restless in bed. A white cell count of 9.3 with hemoglobin of 12.3, d-dimer was at 1.89, electrolytes were normal and the patient a BUN of 47 with a creatinine of 1.96 consistent with an acute kidney injury. Lactic acid level is at 1.4, LFTs are normal, UA is normal,COVID 19 testing came back negative. Chest x-ray showed some limited atelectatic changes in lung base on the right. No evidence of any pneumonia. VQ scan showed some perfusion defect abnormalities and for that reason the patient was started on IV heparin. Nevertheless, the presentation is not typical of pulmonary embolism and the patient has a Doppler of the lower extremity that has been negative for any DVTs. No reported falls. No reported head trauma. No significant cough or sputum production. No nausea. No vomiting. No diarrhea. No abdominal pain. Amylase and lipase have been within normal limits. LFTs are within normal limits. Glucose at 126. Patient is currently on IV fluids in the form of normal saline at the rate of 75 mL an hour and the patient is also on IV heparin per emergency room physicians. Evaluation of 08/16/2021, the patient is more comfortable compared to yesterday. He is not complaining of much pain. He is responsive and his communicating. Denies having any shortness of breath. No pleurisy. No cough or sputum production. At times he is still confused. He remains a unreliable historian. I ordered a CAT scan of his neck and his spine yesterday and this was not completed and the patient declined to undergo the testing and this was not found. I also placed a consultation for urology and the patient has not been seen by neurology at. He is afebrile for now. The pro-calcitonin level was at 0.15. Creatinine is down to 1.7 with a mean of 39, sodium is at 138, PTT is therapeutic and is to be adjusted, white cell count is at 4.8 hemoglobin 9.5. Doppler of the lower extremity has also been negative. Objective - Vital Signs Vital signs: Vital Signs Temp 99.8 F H 08/16/21 07:30 Pulse 84 08/16/21 09:55 Resp 18 08/16/21 09:55 BP 114/69 08/16/21 09:55 Pulse Ox 92 L 08/16/21 09:55 Intake & Output 08/15/21 08/16/21 08/16/21 18:59 06:59 18:59 Intake Total 217.892 206.725 Balance 217.892 206.725 Intake: Intake, IV Titration 217.892 206.725 Amount Heparin Sod,Pork in 0.45% 217.892 106.725 NaCl 25,000 unit In 0.45 % NaCl 1 250ml.bag @ 18 UNITS/KG/HR 14.288 mls/hr IV .[id number] [facility] Rx#: [id number] cefTRIAXone 1 gm In 100 Sodium Chloride 0.9% 50 ml @ 100 mls/hr IVPB Q24H [facility] Rx#:[id number] - Exam the patient is oriented to his . Nevertheless, he is unable to answer questions appropriately. At times he is more confused and shaky and restless in bed. For that reason, I will give he is 1-2 at max. Head exam was generally normal. There was no scleral icterus or corneal arcus. Mucous membranes were moist. Neck was supple and without jugular venous distension, thyromegaly, or carotid bruits. Carotids were easily palpable bilaterally. There was no adenopathy. Lungs sounds are diminished breath sound and the patient has symmetrical breath sounds bilaterally. Cardiac exam revealed the PMI to be normally situated and sized. The rhythm was regular and no extrasystoles were noted during several minutes of auscultation. The first and second heart sounds were normal and physiologic splitting of the second heart sound was noted. There were no murmurs, rubs, clicks, or gallops. Abdominal exam revealed normal bowel sounds. The abdomen was soft, non-tender, and without masses, organomegaly, or appreciable enlargement of the abdominal aorta. The patient has a pain stimulator pocket over the left lateral anterior abdominal wall Examination of the extremities revealed easily palpable radial, femoral and pedal pulses. There was no cyanosis, clubbing or edema. Examination of the skin revealed no evidence of significant rashes, suspicious appearing nevi or other concerning lesions. Neurologically the patient is confused, his speech is slightly garbled. No focal neurological deficits. He is able to move all 4 extremities. Gait has not been assessed. Motor function is obviously diminished in all 4 extremities and there is global weakness. Pupils are equal reactive to light. - Labs CBC & Chem 7: 08/16/21 06:58 08/16/21 06:58 Labs: Abnormal Lab Results - Last 24 Hours (Table) 08/14/21 08/15/21 08/16/21 Range/Units 21:47 23:41 06:58 RBC 2.87 L (4.30-5.90) m/uL Hgb 9.5 L D (13.0-17.5) gm/dL Hct 29.0 L (39.0-53.0) % MCV 101.0 H (80.0-100.0) fL Lymphocytes # 0.7 L (1.0-4.8) k/uL APTT 76.4 H (22.0-30.0) sec BUN (9-20) mg/dL Creatinine (0.66-1.25) mg/dL Calcium (8.4-10.2) mg/dL Phosphorus (2.5-4.5) mg/dL Total Protein (6.3-8.2) g/dL Albumin (3.5-5.0) g/dL Procalcitonin 0.15 H (0.02-0.09) ng/mL 08/16/21 08/16/21 Range/Units 06:58 06:58 RBC (4.30-5.90) m/uL Hgb (13.0-17.5) gm/dL Hct (39.0-53.0) % MCV (80.0-100.0) fL Lymphocytes # (1.0-4.8) k/uL APTT 35.7 H (22.0-30.0) sec BUN 39 H (9-20) mg/dL Creatinine 1.79 H (0.66-1.25) mg/dL Calcium 8.1 L (8.4-10.2) mg/dL Phosphorus 2.4 L (2.5-4.5) mg/dL Total Protein 6.0 L (6.3-8.2) g/dL Albumin 2.9 L (3.5-5.0) g/dL Procalcitonin (0.02-0.09) ng/mL Assessment and Plan Plan: 1 Acute febrile illness on that investigation. The patient was also noted to be slightly hypoxic. Further investigation was done for pulmonary embolism. Overall clinical suspicion for PE is low. D-dimer is mildly elevated. Doppler of the lower extremity has been negative. CT angiogram and not been done as the patient has an underlying acute kidney injury. Underlying pneumonia of the right lower lobe cannot be completely excluded. The patient will be kept on a combination of Rocephin and Zithromax for now. IV heparin was also initiated at the emergency department. Further investigations to follow. Pro-calcitonin level today is at 0.18. 2 chronic back pain in addition to diffuse body aches and furthermore the patient is complaining of neck and mid thoracic pain along with his chronic back pain. The patient has a pain stimulator to his lumbar spine. No indication of any swelling or erythema along the spine. This is to be further investigated. The patient has been taking Benjamin on outpatient basis. No evidence of any drug overdose at this point in time 3 altered mentation, that investigation 4 acute kidney injury, improving 5 history of hypertension 6 hyperlipidemia 7 BPH 8 altered mentation, consider underlying dementia. The patient's mentation is improved compared to yesterday. No neck stiffness. Communicating and following commands although he continues to be a very unreliable historian. Plan Anemia workup and the fever workup is still in progress. The patient has not undergone a CAT scan of the head or the spine yet. He is clinically better. He is afebrile for now. He is responding to fluids. Creatinine is improved. I doubt the diagnosis of poor embolism. Will be given same antibiotic coverage for now. Awaiting cultures. Awaiting neurology consultation. Continue with oxygen supplementation Continue IV heparin pending further workup and I would like to go obtain a CT angiogram once the patient's renal function stabilizes Normal saline at the rate of 75 mL an hour IV Rocephin and Zithromax CAT scan of the C-spine, thoracic spine and the lumbar spine, without contrast Computed tomography scan of the head without contrast Urine drug screen Blood cultures Neurology consultation We'll continue to follow
[2021-08-16] MEDS: TAMSULOSIN 0.4 MG CAP.ER.24H PO SCH (11:35)
[2021-08-16] MEDS: ATORVASTATIN 10 MG TAB PO SCH (11:35)
[2021-08-16 12:41] LABS: Amphetamine Screen,Urine Not Detected (NotDetected); Barbiturate Screen,Urine Not Detected (NotDetected); Benzodiazepines Screen,Urine Not Detected (NotDetected); Cocaine Screen,Urine Not Detected (NotDetected); Methadone Screen, Urine Not Detected (NotDetected); Opiate Screen,Urine Detected (NotDetected); Oxycodone Screen, Urine Not Detected (NotDetected); Phencyclidine Screen,Urine Not Detected (NotDetected); Tricyclic Antidepressant,Urine Not Detected (NotDetected); Urn Cannabinoid Scrn Not Detected (NotDetected)
[2021-08-16] MEDS: IPRATROPIUM-ALBUTEROL 3 ML NEB INHALATION SCH ×3 (13:07→20:16)
[2021-08-16] MEDS: HYDROcodone/APAP 10-325MG 1 EACH TAB PO PRN (17:15)
--- NOTE | 2021-08-16 17:18 | P.CNNES ---
History of Present Illness Consult date: 08/16/21 Requesting physician: Seble Chen Reason for Consult: altered mental status History of Present Illness: This is an 85-year-old gentleman with medical history of hypertension, chronic low back s/p pain stimulator who presented to the emergency department on 08/14/2021 for pain. Neurology is consulted for altered mental status. Patient's is at bedside and helps with some of the history. Per the patient she stated that the patient the has been complaining of pain in the lower back as well as the as well as the anterior region of the lower abdomen but he is he feels it was a bone from the anterior region: All the way to the back going to the . Patient denied of any headaches, any nausea any vom iting. Denied of any focal weakness, numbness. He does complain of neck pain as well as lower back pain. During the hospital stay he presented with a temperature of 101.0 Fahrenheit got as high as 102 Fahrenheit. His oxygen saturation got as low as 86% during this hospital stay. The patient's his mentation has improved compared to earlier. Patient does not have any history of stroke or seizures. The patient's he the patient's complaining of neck pain as well. Of Note is seems the patient the had spinal surgery in his lower back has a pain stimulator inserted at least 5 years ago. He takes [place] for his pain control and he feels that the pain is getting worse per the record that. His white blood cell on presentation is 9.3 thousand the repeat is 4.8. His hemoglobin initially was 12.3 and a repeat it was 9.5 the. Social serum glucose is 126 and the plasma lactic acid venous 1.4. AST is 22 and ALT 16. Sodium is 139, creatinine is 1.96, calcium is 9.1, phosphorus 2.7, magnesium is 1.9. CRP is 3.8. Urinalysis negative for urinary tract infection. Urine drug screen is positive for opiates. Carr virus PCR was not detected. He had CT abdomen and pelvis and it's reported as no acute abnormality within the abdomen and pelvis. 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 Penis duplex of the lower extremities was negative for DVTs. pulmonary perfusion is reported as there is perfusion abnormality within the lateral margins of the right lung. Pulmonary embolism in the differential diagnosis at. As a result the patient is on IV heparin drip. As well as the patient is on Rocephin and Zithromax at. Pulmonary team is on board. Review of Systems Review of system: The 12 point system was reviewed and apparent positive and negative per HPI. Past Medical History Past Medical History: Hypertension History of Any Multi-Drug Resistant Organisms: None Reported Past Surgical History: Back Surgery Past Psychological History: No Psychological Hx Reported Smoking Status: Former smoker Past Alcohol Use History: None Reported Past Drug Use History: None Reported - Past Family History Father History Unknown: Yes Medications and Allergies Home Medications Medication Instructions Recorded Confirmed Type Albuterol Inhaler [Ventolin Hfa 2 puff INHALATION RT-QID PRN 08/14/21 08/14/21 History Inhaler] Dipyridamole [Persantine] 75 mg PO BID 08/14/21 08/14/21 History Enalapril Maleate 10 mg PO DAILY 08/14/21 08/14/21 History HYDROcodone/APAP 10-325MG [[place] 1 tab PO QID PRN 08/14/21 08/14/21 History 10-325] Simvastatin [Zocor] 20 mg PO DAILY 08/14/21 08/14/21 History Tamsulosin HCl [Flomax] 0.4 mg PO DAILY 08/14/21 08/14/21 History Allergies Allergy/AdvReac Type Severity Reaction Status Date / Time No Known Allergies Allergy Verified 08/14/21 23:16 Physical Examination - Vital Signs Vital Signs: Vital Signs Temp Pulse Pulse Resp BP BP Pulse Ox 08/16/21 13:19 106 H 08/16/21 13:09 96 08/16/21 12:00 99.3 F 89 18 105/62 96 08/16/21 09:55 84 18 114/69 92 L 08/16/21 08:08 94 L 08/16/21 07:30 99.8 F H 80 26 H 116/78 86 L 08/16/21 01:07 99.6 F 92 18 109/61 94 L 08/15/21 20:00 99.2 F 96 18 118/88 96 08/15/21 17:43 78 18 114/69 98 08/15/21 15:32 80 20 96/58 96 Intake and Output 08/15/21 08/16/21 08/16/21 22:59 06:59 14:59 Intake Total 250.000 174.617 102.971 Balance 250.000 174.617 102.971 Intake: Intake, IV Titration 250.000 174.617 102.971 Amount Heparin Sod,Pork in 0.45% 250.000 74.617 102.971 NaCl 25,000 unit In 0.45 % NaCl 1 250ml.bag @ 18 UNITS/KG/HR 14.288 mls/hr IV .[id number] [facility] Rx#: [id number] cefTRIAXone 1 gm In 100 Sodium Chloride 0.9% 50 ml @ 100 mls/hr IVPB Q24H [facility] Rx#:[id number] GENERAL: The patient is lying in bed and is not in acute distress. CHEST: The heart rate is regular rate rhythm. No murmurs to auscultation. LUNG: Clear to auscultation bilaterally no wheezing noted throughout. Not labored breathing. ABDOMEN/GI: Bowel sounds present in all 4 quadrants. No tenderness to palpation throughout. NEUROLOGICAL: Higher mental function: The patient is awake, alert, oriented to self, place. He stated the month is December and does not know time (per he is not oriented to time at baseline). Patient is following commands. No aphasia and no neglect. Cranial nerves: The pupils are round, equal and reactive to light and accommodation. Visual [place] are full to confrontation throughout. Extraocular movement is intact no nystagmus is noted. Facial sensation is normal to touch throughout. The facial strength is normal throughout. Hearing is moderately decreased bilaterally to hand rub. Tongue is midline and moved [id number] without any difficulty. No dysarthria is noted. Shoulder shrug is normal january aterally. Motor: Gait is deferred. The strength is 5 over 5 throughout. Normal tone and bulk. Cerebellum: Normal finger to nose heel to chin bilaterally. Sensation: Sensation is normal to touch throughout. Reflexes (right/left): 1+ throughout. Plantars are mute bilaterally. Results - Laboratory Findings CBC and BMP: 08/16/21 06:58 08/16/21 06:58 Abnormal Lab Findings: Abnormal Labs 08/14/21 08/14/21 08/14/21 21:47 21:47 21:47 RBC 3.76 L Hgb 12.3 L Hct 36.3 L MCV Lymphocytes # 0.7 L APTT D-Dimer BUN 47 H Creatinine 1.96 H Glucose 126 H Calcium Phosphorus C-Reactive Protein 3.8 H Total Protein Albumin Procalcitonin Urine Opiates Screen 08/14/21 08/14/21 08/15/21 21:47 23:58 08:54 RBC Hgb Hct MCV Lymphocytes # APTT 34.7 H D-Dimer 1.89 H BUN Creatinine Glucose Calcium Phosphorus C-Reactive Protein Total Protein Albumin Procalcitonin 0.15 H Urine Opiates Screen 08/15/21 08/16/21 08/16/21 23:41 06:58 06:58 RBC 2.87 L Hgb 9.5 L D Hct 29.0 L MCV 101.0 H Lymphocytes # 0.7 L APTT 76.4 H D-Dimer BUN 39 H Creatinine 1.79 H Glucose Calcium 8.1 L Phosphorus 2.4 L C-Reactive Protein Total Protein 6.0 L Albumin 2.9 L Procalcitonin Urine Opiates Screen 08/16/21 08/16/21 06:58 12:00 RBC Hgb Hct MCV Lymphocytes # APTT 35.7 H D-Dimer BUN Creatinine Glucose Calcium Phosphorus C-Reactive Protein Total Protein Albumin Procalcitonin Urine Opiates Screen Detected H Assessment and Plan Assessment: Altered mental status with pyrexia. Encephalopathy of unknown etiology. Patient has component of metabolic encephalopathy and slight hypoxic encephalopathy---mentation is improved (per back to baseline) Pyrexia of unknown cause Chronic neck and lower back pain for at least 6 months and progressively getting worse. Acute kidney insufficiency slightly trending down Chronic lower back pain and has a pain stimulator History of hypertension History of Hyperlipidemia Plan: CT the head is ordered and is pending. I ordered CT cervical, throacic and lumbar. Cannot get MRI brain since has stimulator. I'll hold off on getting EEG at this time. But if the patient has any further confusion we'll get an EEG as an inpatient. Consulted infection disease team Ordered TSH, vitamin B12, folate, ammonia level. Pulmonary team doubt patient has pulmonary embolism. Every 4 hours neuro checks. Pulmonary team is on board We'll defer the rest of medical management to the primary team Plan was discussed with the patient's (who is at bedside) and his nurse. Thank You for the Consultation. Kuldeep Brownlee MD Neuro-Hospitalist Time with Patient: Greater than 30
[2021-08-16] MEDS: HEPARIN SOD,PORK IN 0.45% NACL 25,000 UNIT in 0.45% NACL 1 250ML.BAG IV SCH (17:19)
[2021-08-16] MEDS: AZITHROMYCIN 500 MG TAB PO SCH (20:35)
[2021-08-16] MEDS: QUEtiapine 25 MG TAB PO SCH (20:35)
[2021-08-17] MEDS: HYDROcodone/APAP 10-325MG 1 EACH TAB PO PRN ×5 (00:24→23:39)
[2021-08-17] MEDS: SODIUM CHLORIDE 0.9% 1,000 ML IV SCH ×2 (05:31→17:55)
[2021-08-17 05:44] LABS: Folate, Serum 10.5 ng/mL (4.40-31.00)
[2021-08-17] MEDS: HEPARIN SOD,PORK IN 0.45% NACL 25,000 UNIT in 0.45% NACL 1 250ML.BAG IV SCH ×2 (06:01→17:55)
[2021-08-17] MEDS: IPRATROPIUM-ALBUTEROL 3 ML NEB INHALATION SCH ×4 (07:26→19:17)
[2021-08-17] MEDS: ATORVASTATIN 10 MG TAB PO SCH (08:38)
[2021-08-17] MEDS: TAMSULOSIN 0.4 MG CAP.ER.24H PO SCH (08:38)
[2021-08-17] MEDS: PANTOPRAZOLE 40 MG/10 ML VIAL IV SCH (08:38)
--- NOTE | 2021-08-17 10:06 | P.PN ---
Subjective Progress Note Date: 08/17/21 This is an 85-year-old male patient, who was brought into the emergency departm ent today because of pain. According to the family was at the bedside, his pain is chronic and the patient has diffuse pain and more specifically in his lower back for many years. The patient undergone previous spine surgery and the patient has a pain stimulator in place that was inserted at least 5 years ago. Nevertheless, the patient has been under poor control and the patient has been taking Victoria for pain control. Over the past 2 days, the pain has gotten worse. The exact location of the pain is not clear. The patient was pointing to his abdomen mostly on the right. At the same time he pointed out to his neck and upper back area. He is a very unreliable historian. In fact I feel like he is confused at this point in time and is unable to provide any history. His does work and when she came home from work she found them and this condition she opted to bring him to the hospital. Here in the hospital, the patient has started on some further investigation. The patient was found to be febrile at the time of admission. Note that he has no seizure activity. No neck sti ffness. No focal neurological deficit. At time he is shaking and is a bit restless in bed. A white cell count of 9.3 with hemoglobin of 12.3, d-dimer was at 1.89, electrolytes were normal and the patient a BUN of 47 with a creatinine of 1.96 consistent with an acute kidney injury. Lactic acid level is at 1.4, LFTs are normal, UA is normal,COVID 19 testing came back negative. Chest x-ray showed some limited atelectatic changes in lung base on the right. No evidence of any pneumonia. VQ scan showed some perfusion defect abnormalities and for that reason the patient was started on IV heparin. Nevertheless, the presentation is not typical of pulmonary embolism and the patient has a Doppler of the lower extremity that has been negative for any DVTs. No reported falls. No reported head trauma. No significant cough or sputum production. No nausea. No vomiting. No diarrhea. No abdominal pain. Amylase and lipase have been within normal limits. LFTs are within normal limits. Glucose at 126. Patient is currently on IV fluids in the form of normal saline at the rate of 75 mL an hour and the patient is also on IV heparin per emergency room physicians. Evaluation of 08/16/2021, the patient is more comfortable compared to yesterday. He is not complaining of much pain. He is responsive and his communicating. Denies having any shortness of breath. No pleurisy. No cough or sputum production. At times he is still confused. He remains a unreliable historian. I ordered a CAT scan of his neck and his spine yesterday and this was not completed and the patient declined to undergo the testing and this was not found. I also placed a consultation for urology and the patient has not been seen by neurology at. He is afebrile for now. The pro-calcitonin level was at 0.15. Creatinine is down to 1.7 with a mean of 39, sodium is at 138, PTT is therapeutic and is to be adjusted, white cell count is at 4.8 hemoglobin 9.5. Doppler of the lower extremity has also been negative. 08/17/2021, the patient's mental status improved. His much more comfortable and his communicating. Denies having any chest pain. He had a uneventful night and he is still on 5 L of oxygen by nasal cannula with a pulse is a 96%. He remains on IV heparin. Blood work is still pending for now. Meanwhile, the patient is no fever today. He remains on broad-spectrum antibiotics. He was seen by neurology. CAT scan of the spine and the head is still pending for now. I again doubt the possibility of pulmonary embolism in this patient. I'm going to proceed with a CT angiogram once his renal function normalizes. I'm awaiting a follow-up labs from today. Objective - Vital Signs Vital signs: Vital Signs Temp 98.3 F 08/17/21 03:40 Pulse 108 H 08/17/21 07:43 Resp 20 08/17/21 03:40 BP 116/74 08/17/21 03:40 Pulse Ox 95 08/17/21 07:34 Intake & Output 08/16/21 08/17/21 08/17/21 18:59 06:59 18:59 Intake Total 122.971 72.412 Balance 122.971 72.412 Weight 79.379 kg 96 kg Intake: Intake, IV Titration 102.971 72.412 Amount Heparin Sod,Pork in 0.45% 102.971 72.412 NaCl 25,000 unit In 0.45 % NaCl 1 250ml.bag @ 18 UNITS/KG/HR 14.288 mls/hr IV .[id number] [facility] Rx#: [id number] Oral 20 Other: Voiding Method Toilet # Voids 3 - Exam Gen. appearance the patient is calm and comfortable and breathing is nonlabored currently on 3 L Head exam was generally normal. There was no scleral icterus or corneal arcus. Mucous membranes were moist. Neck was supple and without jugular venous distension, thyromegaly, or carotid bruits. Carotids were easily palpable bilaterally. There was no adenopathy. Lungs sounds are diminished breath sound and the patient has symmetrical breath sounds bilaterally. Cardiac exam revealed the PMI to be normally situated and sized. The rhythm was regular and no extrasystoles were noted during several minutes of auscultation. The first and second heart sounds were normal and physiologic splitting of the second heart sound was noted. There were no murmurs, rubs, clicks, or gallops. Abdominal exam revealed normal bowel sounds. The abdomen was soft, non-tender, and without masses, organomegaly, or appreciable enlargement of the abdominal aorta. The patient has a pain stimulator pocket over the left lateral anterior abdominal wall Examination of the extremities revealed easily palpable radial, femoral and pedal pulses. There was no cyanosis, clubbing or edema. Examination of the skin revealed no evidence of significant rashes, suspicious appearing nevi or other concerning lesions. Neurologically the patient is not confused this morning. He has no headaches. No focal neurological deficits. No agitation. Speech is improved. No focal neurological deficits. He is able to move all 4 extremities. Gait has not been assessed. Motor function is obviously diminished in all 4 extremities and there is global weakness. Pupils are equal reactive to light. - Labs CBC & Chem 7: 08/16/21 06:58 08/16/21 06:58 Labs: Abnormal Lab Results - Last 24 Hours (Table) 08/16/21 08/16/21 08/16/21 Range/Units 06:58 12:00 18:30 APTT 51.5 H (22.0-30.0) sec TSH 0.208 L (0.465-4.680) mIU/L Urine Opiates Screen Detected H (NotDetected) Assessment and Plan Plan: 1 Acute febrile illness on that investigation. The patient was also noted to be slightly hypoxic. Further investigation was done for pulmonary embolism. Overall clinical suspicion for PE is low. D-dimer is mildly elevated. Doppler of the lower extremity has been negative. CT angiogram and not been done as the patient has an underlying acute kidney injury. Underlying pneumonia of the right lower lobe cannot be completely excluded. The patient will be kept on a combination of Rocephin and Zithromax for now. IV heparin was also initiated at the emergency department. Further investigations to follow. Pro-calcitonin l evel today is at 0.18. On today's evaluation, the patient is afebrile. He remains on antibiotics. He remains on IV heparin. I'm still not convinced that this is a pulmonary embolism. I'm awaiting complete normalization of the renal function to proceed with a CTA. Meanwhile, neurology evaluated the patient and his mental status improved. 2 chronic back pain in addition to diffuse body aches and furthermore the patient is complaining of neck and mid thoracic pain along with his chronic back pain. The patient has a pain stimulator to his lumbar spine. No indication of any swelling or erythema along the spine. This is to be further investigated. The patient has been taking Victoria on outpatient basis. No evidence of any drug overdose at this point in time 3 altered mentation, that investigation 4 acute kidney injury, improving 5 history of hypertension 6 hyperlipidemia 7 BPH 8 altered mentation, consider underlying dementia. The patient's mentation is improved compared to yesterday. No neck stiffness. There is improvement in his mental status compared to yesterday and today before. He seems to be much more appropriate. On today's evaluation. CAT scan of the brain and the spine is still pending for now. Neurologic consultation is appreciated. Plan The patient is currently afebrile Continue with oxygen supplementation, he has been weaned down to 3 L and he will be further weaned down and and possibly on room air today., Continue IV heparin pending further workup and I would like to go obtain a CT angiogram once the patient's renal function stabilizes Normal saline at the rate of 75 mL an hour IV Rocephin and Zithromax, cultures are all negative for now and the patient is afebrile CAT scan of the C-spine, thoracic spine and the lumbar spine, without contrast Computed tomography scan of the head without contrast Urine drug screen is negative Blood cultures is negative Neurology consultation We'll continue to follow
[2021-08-17 12:44] LABS: Basophils % (A) 1 %; Eosinophils # (A) 0.1 k/uL (0-0.7); Eosinophils % (A) 3 %; HCT 30.4 % (39.0-53.0); HGB 10.2 gm/dL (13.0-17.5); Lymphocytes # (A) 0.7 k/uL (1.0-4.8); Lymphocytes % (A) 17 %; MCH 33.3 pg (25.0-35.0); MCHC 33.7 g/dL (31.0-37.0); MCV 98.9 fL (80.0-100.0); Mean Platelet Volume 8.3; Monocytes # (A) 0.4 k/uL (0-1.0); Monocytes % (A) 9 %; Neutrophils % (A) 67 %; Platelet Count 147 k/uL (150-450); RBC 3.07 m/uL (4.30-5.90); RDW 13.3 % (11.5-15.5); WBC 4.4 k/uL (3.8-10.6)
[2021-08-17 13:39] LABS: Calcium 8.4 mg/dL (8.4-10.2); Potassium 4.2 mmol/L (3.5-5.1)
--- NOTE | 2021-08-17 14:06 | P.PN ---
Subjective Progress Note Date: 08/17/21 The patient is seen at bedside and is accompanied with his . Per patient's and his nurse no further confusion. He denies of headache, focal weakness. CT of spinal was not performed since patient could not lie flat. No further fevers. Objective - Vital Signs Vital signs: Vital Signs Temp 98.3 F 08/17/21 03:40 Pulse 102 H 08/17/21 12:00 Resp 16 08/17/21 12:00 BP 126/72 08/17/21 12:00 Pulse Ox 93 L 08/17/21 12:00 Intake & Output 08/16/21 08/17/21 08/17/21 18:59 06:59 18:59 Intake Total 122.971 72.412 Balance 122.971 72.412 Weight 79.379 kg 96 kg Intake: Intake, IV Titration 102.971 72.412 Amount Heparin Sod,Pork in 0.45% 102.971 72.412 NaCl 25,000 unit In 0.45 % NaCl 1 250ml.bag @ 18 UNITS/KG/HR 14.288 mls/hr IV .[id number] [facility] Rx#: [id number] Oral 20 Other: Voiding Method Toilet Toilet # Voids 3 - Exam GENERAL: The patient is lying in bed and is not in acute distress. NEUROLOGICAL: Higher mental function: The patient is awake, alert, oriented to self, place. He stated the month is December and does not know time (per he is not oriented to time at baseline). Patient is following commands. No aphasia and no neglect. Cranial nerves: The pupils are round, equal and reactive to light and accommodation. Visual b[place] are full to confrontation throughout. Extraocular movement is intact no nystagmus is noted. Facial sensation is normal to touch throughout. The facial strength is normal throughout. Hearing is moderately decreased bilaterally to hand rub. Tongue is midline and moved [id number] without any difficulty. No dysarthria is noted. Shoulder shrug is normal bilaterally. Motor: Gait is deferred. The strength is 5 over 5 throughout. Normal tone and bulk. Cerebellum: Normal finger to nose heel to chin bilaterally. Sensation: Sensation is normal to touch throughout. Reflexes (right/left): 1+ throughout. Plantars are mute bilaterally. MUTE: AST is 22 and ALT 16. Ammonia is 18. Sodium is 139, creatinine is 1.96, calcium is 9.1, phosphorus 2.7, magnesium is 1.9. CRP is 3.8. Urinalysis negative for urinary tract infection. Urine drug screen is positive for opiates. Carr virus PCR was not detected. He had CT abdomen and pelvis and it's reported as no acute abnormality within the abdomen and pelvis. 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 duplex of the lower extremities was negative for DVTs. pulmonary perfusion is reported as there is perfusion abnormality within the lateral margins of the right lung. Pulmonary embolism in the differential diagnosis at. As a result the patient is on IV heparin drip. As well as the patient is on Rocephin and Zithromax at. Pulmonary team is on board. TSH is 0.208. Vitamin B-12 is 348 and the serum folate is 10.5 - Labs CBC & Chem 7: 08/17/21 11:52 08/17/21 11:52 Labs: Abnormal Lab Results - Last 24 Hours (Table) 08/16/21 08/16/21 08/17/21 Range/Units 06:58 18:30 11:52 RBC (4.30-5.90) m/uL Hgb (13.0-17.5) gm/dL Hct (39.0-53.0) % Plt Count (150-450) k/uL Lymphocytes # (1.0-4.8) k/uL APTT 51.5 H 51.9 H (22.0-30.0) sec BUN (9-20) mg/dL Creatinine (0.66-1.25) mg/dL Glucose (74-99) mg/dL TSH 0.208 L (0.465-4.680) mIU/L 08/17/21 08/17/21 Range/Units 11:52 11:52 RBC 3.07 L (4.30-5.90) m/uL Hgb 10.2 L (13.0-17.5) gm/dL Hct 30.4 L (39.0-53.0) % Plt Count 147 L (150-450) k/uL Lymphocytes # 0.7 L (1.0-4.8) k/uL APTT (22.0-30.0) sec BUN 25 H (9-20) mg/dL Creatinine 1.37 H (0.66-1.25) mg/dL Glucose 108 H (74-99) mg/dL TSH (0.465-4.680) mIU/L Assessment and Plan Assessment: Altered mental status with pyrexia. Encephalopathy of unknown etiology. Patient has component of metabolic encephalopathy and slight hypoxic encephalopathy---mentation is improved (per back to baseline) Pyrexia of unknown cause Chronic neck and lower back pain for at least 6 months and progressively getting worse. Acute kidney insufficiency slightly trending down Chronic lower back pain and has a pain stimulator History of hypertension History of Hyperlipidemia Plan: * Pending CT head. And pending CT cervical, throacic and lumbar (since com plaint of neck and low back pain). * Cannot get MRI brain since has stimulator. * I'll hold off on getting EEG at this time. But if the patient has any further confusion we'll get an EEG as an inpatient. * Infection disease team is consulted. * Since the patient has low vitamin B12 start the patient on vitamin B12 1000 g daily. * TSH is 0.208 and we'll defer the management to the primary team. * Pulmonary team doubt patient has pulmonary embolism. * Every 4 hours neuro checks. * Pulmonary team is on board * We'll defer the rest of medical management to the primary team Plan was discussed with the patient's (who is at bedside) and his nurse. Kuldeep Brownlee MD Neuro-Hospitalist Time with Patient: Less than 30
[2021-08-17] MEDS: AZITHROMYCIN 500 MG TAB PO SCH (21:37)
[2021-08-17] MEDS: QUEtiapine 25 MG TAB PO SCH (21:37)
[2021-08-17] MEDS: HYDROmorphone 0.5 MG/0.5 ML SYRINGE IVP PRN (21:38)
[2021-08-18] MEDS: HYDROmorphone 0.5 MG/0.5 ML SYRINGE IVP PRN ×3 (03:11→17:18)
[2021-08-18] MEDS: SODIUM CHLORIDE 0.9% 1,000 ML IV SCH ×2 (06:24→17:18)
[2021-08-18] MEDS: HYDROcodone/APAP 10-325MG 1 EACH TAB PO PRN ×3 (07:07→20:39)
[2021-08-18] MEDS: IPRATROPIUM-ALBUTEROL 3 ML NEB INHALATION SCH ×4 (08:44→19:55)
--- NOTE | 2021-08-18 09:18 | P.PN ---
Subjective Progress Note Date: 08/18/21 This is an 85-year-old male patient, who was brought into the emergency departm ent today because of pain. According to the family was at the bedside, his pain is chronic and the patient has diffuse pain and more specifically in his lower back for many years. The patient undergone previous spine surgery and the patient has a pain stimulator in place that was inserted at least 5 years ago. Nevertheless, the patient has been under poor control and the patient has been taking [place] for pain control. Over the past 2 days, the pain has gotten worse. The exact location of the pain is not clear. The patient was pointing to his abdomen mostly on the right. At the same time he pointed out to his neck and upper back area. He is a very unreliable historian. In fact I feel like he is confused at this point in time and is unable to provide any history. His does work and when she came home from work she found them and this condition she opted to bring him to the hospital. Here in the hospital, the patient has started on some further investigation. The patient was found to be febrile at the time of admission. Note that he has no seizure activity. No neck sti ffness. No focal neurological deficit. At time he is shaking and is a bit restless in bed. A white cell count of 9.3 with hemoglobin of 12.3, d-dimer was at 1.89, electrolytes were normal and the patient a BUN of 47 with a creatinine of 1.96 consistent with an acute kidney injury. Lactic acid level is at 1.4, LFTs are normal, UA is normal,COVID 19 testing came back negative. Chest x-ray showed some limited atelectatic changes in lung base on the right. No evidence of any pneumonia. VQ scan showed some perfusion defect abnormalities and for that reason the patient was started on IV heparin. Nevertheless, the presentation is not typical of pulmonary embolism and the patient has a Doppler of the lower extremity that has been negative for any DVTs. No reported falls. No reported head trauma. No significant cough or sputum production. No nausea. No vomiting. No diarrhea. No abdominal pain. Amylase and lipase have been within normal limits. LFTs are within normal limits. Glucose at 126. Patient is currently on IV fluids in the form of normal saline at the rate of 75 mL an hour and the patient is also on IV heparin per emergency room physicians. Evaluation of 08/16/2021, the patient is more comfortable compared to yesterday. He is not complaining of much pain. He is responsive and his communicating. Denies having any shortness of breath. No pleurisy. No cough or sputum production. At times he is still confused. He remains a unreliable historian. I ordered a CAT scan of his neck and his spine yesterday and this was not completed and the patient declined to undergo the testing and this was not found. I also placed a consultation for urology and the patient has not been seen by neurology at. He is afebrile for now. The pro-calcitonin level was at 0.15. Creatinine is down to 1.7 with a mean of 39, sodium is at 138, PTT is therapeutic and is to be adjusted, white cell count is at 4.8 hemoglobin 9.5. Doppler of the lower extremity has also been negative. 08/17/2021, the patient's mental status improved. His much more comfortable and his communicating. Denies having any chest pain. He had a uneventful night and he is still on 5 L of oxygen by nasal cannula with a pulse is a 96%. He remains on IV heparin. Blood work is still pending for now. Meanwhile, the patient is no fever today. He remains on broad-spectrum antibiotics. He was seen by neurology. CAT scan of the spine and the head is still pending for now. I again doubt the possibility of pulmonary embolism in this patient. I'm going to proceed with a CT angiogram once his renal function normalizes. I'm awaiting a follow-up labs from today. 08/18/2021, the patient feels that he did have a good night to sleep. He is currently awake and alert and following commands and answering questions. He remains on oxygen at 3 L per minute nasal cannula. He remains afebrile. He remains on antibiotics. Renal function continues to improve in the creatinine is down to 1.3. As stated earlier, I'm not convinced that the patient has pulmonary embolism. I'm going to undergo a CT angiogram once renal function is further normalized.The patient did also have some diarrhea earlier. CAT scan of the brain was completed today and the results are still pending and the patient is being seen by neurology. White cell count 4.4 with a hemoglobin of 10.2 and a platelet count of 147. PTT is therapeutic at 51 as the patient is currently on IV heparin. The patient's creatinine is at 1.37, improved compared to yesterday, follow-up labs are still pending from today. Influenza screen are negative. Objective - Vital Signs Vital signs: Vital Signs Temp 98.4 F 08/18/21 03:00 Pulse 81 08/18/21 03:00 Resp 20 08/18/21 03:00 BP 154/71 08/18/21 03:00 Pulse Ox 94 L 08/18/21 03:00 Intake & Output 08/17/21 08/18/21 08/18/21 18:59 06:59 18:59 Intake Total 187.508 118 Output Total 400 Balance 187.508 -400 118 Weight 105 kg Intake: Intake, IV Titration 187.508 Amount Heparin Sod,Pork in 0.45% 187.508 NaCl 25,000 unit In 0.45 % NaCl 1 250ml.bag @ 18 UNITS/KG/HR 14.288 mls/hr IV .[id number] [facility] Rx#: [id number] Oral 118 Output: Urine 400 Other: Voiding Method Toilet Toilet # Voids 1 1 2 # Bowel Movements 1 - Exam Gen. appearance the patient is calm and comfortable and breathing is nonlabored currently on 3 L Head exam was generally normal. There was no scleral icterus or corneal arcus. Mucous membranes were moist. Neck was supple and without jugular venous distension, thyromegaly, or carotid bruits. Carotids were easily palpable bilaterally. There was no adenopathy. Lungs sounds are diminished breath sound and the patient has symmetrical breath sounds bilaterally. Cardiac exam revealed the PMI to be normally situated and sized. The rhythm was regular and no extrasystoles were noted during several minutes of auscultation. The first and second heart sounds were normal and physiologic splitting of the second heart sound was noted. There were no murmurs, rubs, clicks, or gallops. Abdominal exam revealed normal bowel sounds. The abdomen was soft, non-tender, and without masses, organomegaly, or appreciable enlargement of the abdominal aorta. The patient has a pain stimulator pocket over the left lateral anterior abdominal wall Examination of the extremities revealed easily palpable radial, femoral and pedal pulses. There was no cyanosis, clubbing or edema. Examination of the skin revealed no evidence of significant rashes, suspicious appearing nevi or other concerning lesions. Neurologically the patient is not confused this morning. He has no headaches. No focal neurological deficits. No agitation. Speech is improved. No focal neurological deficits. He is able to move all 4 extremities. Gait has not been assessed. Motor function is obviously diminished in all 4 extremities and there is global weakness. Pupils are equal reactive to light. - Labs CBC & Chem 7: 08/17/21 11:52 08/17/21 11:52 Labs: Abnormal Lab Results - Last 24 Hours (Table) 08/17/21 08/17/21 08/17/21 Range/Units 11:52 11:52 11:52 RBC 3.07 L (4.30-5.90) m/uL Hgb 10.2 L (13.0-17.5) gm/dL Hct 30.4 L (39.0-53.0) % Plt Count 147 L (150-450) k/uL Lymphocytes # 0.7 L (1.0-4.8) k/uL APTT 51.9 H (22.0-30.0) sec BUN 25 H (9-20) mg/dL Creatinine 1.37 H (0.66-1.25) mg/dL Glucose 108 H (74-99) mg/dL Microbiology - Last 24 Hours (Table) 08/16/21 14:06 Blood Culture - Preliminary Blood No Growth after 24 hours Assessment and Plan Plan: 1 Acute febrile illness on that investigation. The patient was also noted to be slightly hypoxic. Further investigation was done for pulmonary embolism. Overall clinical suspicion for PE is low. D-dimer is mildly elevated. Doppler of the lower extremity has been negative. CT angiogram and not been done as the patient has an underlying acute kidney injury. Underlying pneumonia of the right lower lobe cannot be completely excluded. The patient will be kept on a combination of Rocephin and Zithromax for now. IV heparin was also initiated at the emergency department. Further investigations to follow. Pro-calcitonin level today is at 0.18. On today's evaluation, the patient is afebrile. He remains on antibiotics. He remains on IV heparin. I'm still not convinced that this is a pulmonary embolism. I'm awaiting complete normalization of the renal function to proceed with a CTA. Meanwhile, neurology evaluated the patient and his mental status improved. 2 chronic back pain in addition to diffuse body aches and furthermore the patient is complaining of neck and mid thoracic pain along with his chronic back pain. The patient has a pain stimulator to his lumbar spine. No indication of any swelling or erythema along the spine. This is to be further investigated. The patient has been taking Valier on outpatient basis. No evidence of any drug overdose at this point in time 3 altered mentation, that investigation 4 acute kidney injury, improving 5 history of hypertension 6 hyperlipidemia 7 BPH 8 altered mentation, consider underlying dementia. The patient's mentation is improved compared to yesterday. No neck stiffness. There is improvement in his mental status compared to yesterday and today before. He seems to be much more appropriate. On today's evaluation. CAT scan of the brain and the spine is still pending for now. Neurologic consultation is appreciated. Plan The patient is currently afebrile, and the patient continues to be on a combination of antibiotics. Oxygenation is stable. He is afebrile. Renal function continues to improve. Proceed with a CT angiogram once the patient's renal function further normalizes. Meanwhile, he remains in normal state rate of 75 mL's an hour. CAT scan of the brain was done. Results are still pending. Mental status improved considerably. I'm not absolutely convinced that the patient has pulmonary embolism. Keep IV heparin. CT angiogram once the patient's renal function normalizes. We'll continue to follow
[2021-08-18] MEDS: ATORVASTATIN 10 MG TAB PO SCH (10:31)
[2021-08-18] MEDS: PANTOPRAZOLE 40 MG/10 ML VIAL IV SCH (10:32)
[2021-08-18] MEDS: TAMSULOSIN 0.4 MG CAP.ER.24H PO SCH (10:32)
[2021-08-18] MEDS: HEPARIN SOD,PORK IN 0.45% NACL 25,000 UNIT in 0.45% NACL 1 250ML.BAG IV SCH (11:39)
--- NOTE | 2021-08-18 12:32 | P.CONS ---
History of Present Illness - Reason for Consult Consult date: 08/17/21 FUO Requesting physician: Kuldeep Brownlee - Chief Complaint shortness of breath , not feeling well x days - History of Present Illness History of present illness : Patient is 85-year-old male presenting to the hospital on 14 August 2021 for evaluation of increasing shortness of breath and cough and fever the patient also complaining of some right-sided abdominal pain for 4 days before presentation to the hospital however no nausea no vomiting constipation or diarrhea with the symptoms the patient has been evaluated by the ER physician on arrival to the ER patient did have a fever of 101 F the patient fever has subsequently resolved patient was hypoxic at one time with O2 sats of 60% his current 94% on 3 L nasal cannula patient did have a normal white count with lymphopenia D-dimer was mildly elevated BUN/creatinine was mildly elevated CRP of 3.8 total 0.15 urine was negative urine drug screen was negative, [place] PCR x2 has been negative patient did have a CT of abdominal pelvis on admission mild interstitial infiltrate and atelectasis in lung bases no acute primary within the abdominal pelvis significant spondylitic changes in the lumbar spine patient has been treated with Rocephin and Zithromax infectious disease was consulted last evening with concern for fever of known origin as of this morning the patient is afebrile the patient is breathing comfortably though no chest pain no nausea no vomiting no abdominal pain no diarrhea Review of system: CONSTITUTIONAL: Positive for weakness along with the fever. EYES: No complaint. ENT: No complaint. RESPIRATORY: As per history of present illness. CARDIOVASCULAR: No complaint. GENITOURINARY: No complaint. GASTROINTESTINAL: As per history of present illness. MUSCULOSKELETAL: No complaint. INTEGUMENTARY: No complaint. PSYCHOLOGIC: No complaint. ENDOCRINE: No complaint. NEUROLOGIC: No complaint. Past medical history : Reviewed, documented below Past surgical history : Reviewed, documented below Social history: Reviewed, documented below Medications: Reviewed, as documented below EXAMINATION: Vital sigans= Reviewed and documented below GENERAL DESCRIPTION: Elderly male lying in bed, no distress. No tachypnea or accessory muscle of respiration use. HEENT: Shows Pallor , no scleral icterus. Oral mucous membrane is dry. NECK: Trachea central, no thyromegaly. LUNGS: Unlabored breathing. Decreased breath sound at the base. No wheeze or crackle. HEART: S1, S2, regular rate and rhythm. ABDOMEN: Soft, no tenderness , guarding or rigidity EXTREMITIES: No edema of feet. SKIN: No rash, no masses palpable. NEUROLOGICAL: The patient is awake, alert, oriented x3, mood and affect normal. LABS AND RADIOLOGY: Reviewed results see below Assessment : Patient presented to hospital with weakness not feeling well in this patient did have some shortness of breath and cough with evidence of some interstitial infiltrate on the CT of the chest x-ray patient did have a normal white count with lymphopenia that will go towards a possible viral illness [place]ez PCR has been negative will need to rule out influenza and RSV to the likely source patient did have a negative CT of abdominal pelvis there is no evidence of any cellulitis and urine has been negative Plan: 1-we will check influenza and RSV PCR 2-repeat a CRP and procalcitonin 3-continue with Rocephin and Zithromax for now which is fever has responded We will follow on clinical condition and cultures to further adjust medication if needed Thank you for this consultation we will follow the patient along with you Past Medical History Past Medical History: Hypertension History of Any Multi-Drug Resistant Organisms: None Reported Past Surgical History: Back Surgery Past Psychological History: No Psychological Hx Reported Smoking Status: Former smoker Past Alcohol Use History: None Reported Past Drug Use History: None Reported - Past Family History Father History Unknown: Yes Medications and Allergies Home Medications Medication Instructions Recorded Confirmed Type Albuterol Inhaler [Ventolin Hfa 2 puff INHALATION RT-QID PRN 08/14/21 08/14/21 History Inhaler] Dipyridamole [Persantine] 75 mg PO BID 08/14/21 08/14/21 History Enalapril Maleate 10 mg PO DAILY 08/14/21 08/14/21 History HYDROcodone/APAP 10-325MG [[place] 1 tab PO QID PRN 08/14/21 08/14/21 History 10-325] Simvastatin [Zocor] 20 mg PO DAILY 08/14/21 08/14/21 History Tamsulosin HCl [Flomax] 0.4 mg PO DAILY 08/14/21 08/14/21 History Allergies Allergy/AdvReac Type Severity Reaction Status Date / Time No Known Allergies Allergy Verified 08/14/21 23:16 Physical Exam Vitals: Vital Signs Temp Pulse Pulse Resp BP Pulse Ox 08/17/21 12:00 102 H 16 126/72 93 L 08/17/21 11:22 84 08/17/21 11:14 76 08/17/21 08:30 100 18 109/61 95 08/17/21 07:43 108 H 08/17/21 07:34 95 08/17/21 07:32 100 08/17/21 03:40 98.3 F 78 20 116/74 95 08/16/21 23:23 86 19 114/64 95 08/16/21 19:45 98.4 F 74 18 112/58 93 L 08/16/21 16:13 99 F 85 18 97/63 08/16/21 16:10 102 H 08/16/21 15:39 99.3 F 75 18 102/63 98 Intake and Output 08/17/21 08/17/21 08/17/21 06:59 14:59 22:59 Other: Voiding Method Toilet Toilet # Voids 3 Weight 96 kg Results CBC & Chem 7: 08/17/21 11:52 08/17/21 11:52 Labs: Abnormal Lab Results - Last 24 Hours (Table) 08/16/21 08/16/21 08/17/21 Range/Units 06:58 18:30 11:52 RBC (4.30-5.90) m/uL Hgb (13.0-17.5) gm/dL Hct (39.0-53.0) % Plt Count (150-450) k/uL Lymphocytes # (1.0-4.8) k/uL APTT 51.5 H 51.9 H (22.0-30.0) sec BUN (9-20) mg/dL Creatinine (0.66-1.25) mg/dL Glucose (74-99) mg/dL TSH 0.208 L (0.465-4.680) mIU/L 08/17/21 08/17/21 Range/Units 11:52 11:52 RBC 3.07 L (4.30-5.90) m/uL Hgb 10.2 L (13.0-17.5) gm/dL Hct 30.4 L (39.0-53.0) % Plt Count 147 L (150-450) k/uL Lymphocytes # 0.7 L (1.0-4.8) k/uL APTT (22.0-30.0) sec BUN 25 H (9-20) mg/dL Creatinine 1.37 H (0.66-1.25) mg/dL Glucose 108 H (74-99) mg/dL TSH (0.465-4.680) mIU/L
[2021-08-18 13:06] LABS: Basophils % (A) 1 %; Eosinophils # (A) 0.2 k/uL (0-0.7); Eosinophils % (A) 6 %; HGB 9.9 gm/dL (13.0-17.5); Lymphocytes # (A) 0.6 k/uL (1.0-4.8); Lymphocytes % (A) 15 %; MCH 33.3 pg (25.0-35.0); MCHC 32.8 g/dL (31.0-37.0); MCV 101.3 fL (80.0-100.0); Monocytes # (A) 0.4 k/uL (0-1.0); Monocytes % (A) 10 %; Neutrophils # (A) 2.9 k/uL (1.3-7.7); Neutrophils % (A) 67 %; Platelet Count 151 k/uL (150-450); RBC 2.96 m/uL (4.30-5.90); RDW 12.6 % (11.5-15.5); WBC 4.3 k/uL (3.8-10.6)
[2021-08-18 13:11] LABS: Calcium 8.8 mg/dL (8.4-10.2); Potassium 4.6 mmol/L (3.5-5.1)
[2021-08-18] MEDS: AZITHROMYCIN 500 MG TAB PO SCH (20:39)
[2021-08-18] MEDS: QUEtiapine 25 MG TAB PO SCH (20:40)
--- NOTE | 2021-08-18 21:57 | P.PN ---
Subjective Progress Note Date: 08/17/21 Principal diagnosis: Febrile illness/ possible pneumonia versus acute viral illness Weakness/debility 85-year-old male presenting to the hospital on 14 August 2021 for evaluation of increasing shortness of breath and cough and fever the patient also complaining of some right-sided abdominal pain for 4 days before presentation to the hospital however no nausea no vomiting constipation or diarrhea with the symptoms the patient has been evaluated by the ER physician on arrival to the ER patient did have a fever of 101 F the patient fever has subsequently resolved patient was hypoxic at one time with O2 sats of 60% his current 94% on 3 L nasal cannula patient did have a normal white count with lymphopenia D-dimer was mildly elevated BUN/creatinine was mildly elevated CRP of 3.8 total 0.15 urine was negative urine drug screen was negative, cortez PCR x2 has been negative patient did have a CT of abdominal pelvis on admission mild interstitial infiltrate and atelectasis in lung bases no acute primary within the abdominal pelvis significant spondylitic changes in the lumbar spine patient has been treated with Rocephin and Zithromax infectious disease was consulted last evening with concern for fever of known origin as of this morning the patient is afebrile the patient is breathing comfortably though no chest pain no nausea no vomiting no abdominal pain no diarrhea Objective - Vital Signs Vital signs: Vital Signs Temp 98.3 F 08/17/21 03:40 Pulse 102 H 08/17/21 12:00 Resp 16 08/17/21 12:00 BP 126/72 08/17/21 12:00 Pulse Ox 93 L 08/17/21 12:00 Intake & Output 08/16/21 08/17/21 08/17/21 18:59 06:59 18:59 Intake Total 122.971 72.412 Balance 122.971 72.412 Weight 79.379 kg 96 kg Intake: Intake, IV Titration 102.971 72.412 Amount Heparin Sod,Pork in 0.45% 102.971 72.412 NaCl 25,000 unit In 0.45 % NaCl 1 250ml.bag @ 18 UNITS/KG/HR 14.288 mls/hr IV .[id number] [facility] Rx#: [id number] Oral 20 Other: Voiding Method Toilet Toilet # Voids 3 - Exam - Constitutional General appearance: Present: average body habitus, cooperative, no acute distress - EENT Eyes: Present: anicteric sclerae, EOMI, PERRLA, normal appearance ENT: Present: hearing grossly normal, normal oropharynx Ears: bilateral: normal - Neck Neck: Present: normal ROM. Absent: lymphadenopathy, rigidity, thyromegaly Carotids: negative: bruit present Thyroid: bilateral: normal size, negative: enlarged, nodule - Respiratory Respiratory: bilateral: CTA, negative: rales, rhonchi, wheezing - Cardiovascular Rhythm: regular Heart sounds: normal: S1, S2 Abnormal Heart Sounds: Absent: systolic murmur, diastolic murmur - Gastrointestinal General gastrointestinal: Present: normal bowel sounds, soft. Absent: distended, organomegaly, tenderness - Genitourinary Genitourinary Comment(s): deferred - Integumentary Integumentary: Present: normal turgor. Absent: jaundiced, rash, ulcer - Neurologic Neurologic: Present: CNII-XII intact. Absent: focal deficits - Musculoskeletal Musculoskeletal: Present: gait normal, strength equal bilaterally - Psychiatric Psychiatric: Present: A&O x's 3, appropriate affect, intact judgment & insight - Labs CBC & Chem 7: 08/18/21 11:30 08/18/21 11:30 Labs: Abnormal Lab Results - Last 24 Hours (Table) 08/16/21 08/16/21 08/17/21 Range/Units 06:58 18:30 11:52 RBC (4.30-5.90) m/uL Hgb (13.0-17.5) gm/dL Hct (39.0-53.0) % Plt Count (150-450) k/uL Lymphocytes # (1.0-4.8) k/uL APTT 51.5 H 51.9 H (22.0-30.0) sec BUN (9-20) mg/dL Creatinine (0.66-1.25) mg/dL Glucose (74-99) mg/dL TSH 0.208 L (0.465-4.680) mIU/L 08/17/21 08/17/21 Range/Units 11:52 11:52 RBC 3.07 L (4.30-5.90) m/uL Hgb 10.2 L (13.0-17.5) gm/dL Hct 30.4 L (39.0-53.0) % Plt Count 147 L (150-450) k/uL Lymphocytes # 0.7 L (1.0-4.8) k/uL APTT (22.0-30.0) sec BUN 25 H (9-20) mg/dL Creatinine 1.37 H (0.66-1.25) mg/dL Glucose 108 H (74-99) mg/dL TSH (0.465-4.680) mIU/L Assessment and Plan Assessment: 1. Acute febrile illness; - Patient presented to hospital with weakness not feeling well in this patient did have some shortness of breath and cough with evidence of some interstitial infiltrate on the CT of the chest x-ray patient did have a normal white count with lymphopenia that will go towards a possible viral illness cortez PCR has been negative will need to rule out influenza and RSV to the likely source patient did have a negative CT of abdominal pelvis there is no evidence of any cellulitis and urine has been negative - Concern for possible PE; unable to perform CTA chest due to renal function; she remains on IV heparin 2. Chronic back pain in addition to diffuse body aches; The patient has a pain stimulator to his lumbar spine. No indication of any swelling or erythema along the spine. This is to be further investigated. The patient has been taking [place] on outpatient basis. No evidence of any drug overdose at this point in time 3. Altered mental status; possible metabolic encephalopathy versus underlying dementia; improving 4. Acute kidney injury; improving with IV fluid hydration; monitor strict MARTA's, daily weights, renal function and electrolytes; avoid nephrotoxins and hypotension 5. Hypertension; currently not on any antihypertensive therapy; blood pressure remained stable 6. Hyperlipidemia; Lipitor 10 mg by mouth daily at bedtime DVT prophylaxis; SCDs/IV heparin CODE STATUS; full code
--- NOTE | 2021-08-18 21:59 | P.PN ---
Subjective Progress Note Date: 08/18/21 Principal diagnosis: Febrile illness/ possible pneumonia versus acute viral illness Weakness/debility 85-year-old male presenting to the hospital on 14 August 2021 for evaluation of increasing shortness of breath and cough and fever the patient also complaining of some right-sided abdominal pain for 4 days before presentation to the hospital however no nausea no vomiting constipation or diarrhea with the symptoms the patient has been evaluated by the ER physician on arrival to the ER patient did have a fever of 101 F the patient fever has subsequently resolved patient was hypoxic at one time with O2 sats of 60% his current 94% on 3 L nasal cannula patient did have a normal white count with lymphopenia D-dimer was mildly elevated BUN/creatinine was mildly elevated CRP of 3.8 total 0.15 urine was negative urine drug screen was negative, [place] PCR x2 has been negative patient did have a CT of abdominal pelvis on admission mild interstitial infiltrate and atelectasis in lung bases no acute primary within the abdominal pelvis significant spondylitic changes in the lumbar spine patient has been treated with Rocephin and Zithromax infectious disease was consulted last evening with concern for fever of known origin as of this morning the patient is afebrile the patient is breathing comfortably though no chest pain no nausea no vomiting no abdominal pain no diarrhea 08/18/2021 Patient is seen and evaluated in room with family at bedside; feels that he did have a good night to sleep. He is currently awake and alert and following commands and answering questions. Vital signs are reviewed and remained stable with a temperature 98.4, pulse 81, respiration 20 and blood pressure 154/71 ; He remains on oxygen at 3 L per minute nasal cannula. He remains afebrile. He remains on antibiotics. Renal function continues to improve in the creatinine is down to 1.3. Pulmonary on board and not convinced that the patient has pulmonary embolism; patient is to undergo a CT angiogram once renal function is further normalized. CAT scan of the brain was completed today and the results are still pending and the patient is being seen by neurology. White cell count 4.4 with a hemoglobin of 10.2 and a platelet count of 147. PTT is therapeutic at 51 as the patient is currently on IV heparin. The patient's creatinine is at 1.37, improved compared to yesterday, follow-up labs are still pending from today. Influenza screen are negative. Objective - Vital Signs Vital signs: Vital Signs Temp 98.4 F 08/18/21 03:00 Pulse 86 08/18/21 11:51 Resp 20 08/18/21 03:00 BP 154/71 08/18/21 03:00 Pulse Ox 94 L 08/18/21 03:00 Intake & Output 08/17/21 08/18/21 08/18/21 18:59 06:59 18:59 Intake Total 187.508 368 Output Total 400 Balance 187.508 -400 368 Weight 105 kg Intake: Intake, IV Titration 187.508 250 Amount Heparin Sod,Pork in 0.45% 187.508 250 NaCl 25,000 unit In 0.45 % NaCl 1 250ml.bag @ 18 UNITS/KG/HR 14.288 mls/hr IV .[id number] AJ Rx#: [id number] Oral 118 Output: Urine 400 Other: Voiding Method Toilet Toilet # Voids 1 1 2 # Bowel Movements 1 - Exam - Constitutional General appearance: Present: average body habitus, cooperative, no acute distress - EENT Eyes: Present: anicteric sclerae, EOMI, PERRLA, normal appearance ENT: Present: hearing grossly normal, normal oropharynx Ears: bilateral: normal - Neck Neck: Present: normal ROM. Absent: lymphadenopathy, rigidity, thyromegaly Carotids: negative: bruit present Thyroid: bilateral: normal size, negative: enlarged, nodule - Respiratory Respiratory: bilateral: CTA, negative: rales, rhonchi, wheezing - Cardiovascular Rhythm: regular Heart sounds: normal: S1, S2 Abnormal Heart Sounds: Absent: systolic murmur, diastolic murmur - Gastrointestinal General gastrointestinal: Present: normal bowel sounds, soft. Absent: distended, organomegaly, tenderness - Genitourinary Genitourinary Comment(s): deferred - Integumentary Integumentary: Present: normal turgor. Absent: jaundiced, rash, ulcer - Neurologic Neurologic: Present: CNII-XII intact. Absent: focal deficits - Musculoskeletal Musculoskeletal: Present: gait normal, strength equal bilaterally - Psychiatric Psychiatric: Present: A&O x's 3, appropriate affect, intact judgment & insight - Labs CBC & Chem 7: 08/18/21 11:30 08/18/21 11:30 Labs: Abnormal Lab Results - Last 24 Hours (Table) 08/17/21 08/17/21 08/17/21 Range/Units 11:52 11:52 11:52 RBC 3.07 L (4.30-5.90) m/uL Hgb 10.2 L (13.0-17.5) gm/dL Hct 30.4 L (39.0-53.0) % Plt Count 147 L (150-450) k/uL Lymphocytes # 0.7 L (1.0-4.8) k/uL APTT 51.9 H (22.0-30.0) sec BUN 25 H (9-20) mg/dL Creatinine 1.37 H (0.66-1.25) mg/dL Glucose 108 H (74-99) mg/dL 08/18/21 Range/Units 11:30 RBC (4.30-5.90) m/uL Hgb (13.0-17.5) gm/dL Hct (39.0-53.0) % Plt Count (150-450) k/uL Lymphocytes # (1.0-4.8) k/uL APTT 35.2 H (22.0-30.0) sec BUN (9-20) mg/dL Creatinine (0.66-1.25) mg/dL Glucose (74-99) mg/dL Microbiology - Last 24 Hours (Table) 08/16/21 14:06 Blood Culture - Preliminary Blood No Growth after 24 hours Assessment and Plan Assessment: 1. Acute febrile illness; - Patient presented to hospital with weakness not feeling well in this patient did have some shortness of breath and cough with evidence of some interstitial infiltrate on the CT of the chest x-ray patient did have a normal white count with lymphopenia that will go towards a possible viral illness cortez PCR has been negative will need to rule out influenza and RSV to the likely source patient did have a negative CT of abdominal pelvis there is no evidence of any cellulitis and urine has been negative - Concern for possible PE; unable to perform CTA chest due to renal function; she remains on IV heparin 2. Chronic back pain in addition to diffuse body aches; The patient has a pain stimulator to his lumbar spine. No indication of any swelling or erythema along the spine. This is to be further investigated. The patient has been taking [place] on outpatient basis. No evidence of any drug overdose at this po int in time 3. Altered mental status; possible metabolic encephalopathy versus underlying dementia; improving 4. Acute kidney injury; improving with IV fluid hydration; monitor strict MARTA's, daily weights, renal function and electrolytes; avoid nephrotoxins and hypotension 5. Hypertension; currently not on any antihypertensive therapy; blood pressure remained stable 6. Hyperlipidemia; Lipitor 10 mg by mouth daily at bedtime DVT prophylaxis; SCDs/IV heparin CODE STATUS; full code
[2021-08-19] MEDS ORDERED: HYDROmorphone 0.5 MG/0.5 ML SYRINGE ONE (00:20)
[2021-08-19] MEDS ORDERED: HEPARIN SOD,PORK IN 0.45% NACL PMX 25,000 UNIT/250 ML BAG IV ONE (00:20)
--- NOTE | 2021-08-19 00:24 | PN ---
PROGRESS NOTE DATE OF SERVICE: 08/18/2021 REASON FOR FOLLOWUP: Possible pneumonia. INTERVAL HISTORY: The patient is afebrile, has been breathing more comfortably. Patient denies having any chest pain. Did have a cough though decreased in intensity. No vomiting. No abdominal pain or diarrhea. PHYSICAL EXAMINATION: Blood pressure is 149/81, pulse of 92, temperature 98.2. He is 94% on 3 L nasal cannula. General description is an elderly male lying in bed in no distress. Respiratory system: Unlabored breathing, decreased intensity of breath sounds. No wheeze. Heart S1, S2. Regular rate and rhythm. Abdomen soft, no tenderness. LABS: Hemoglobin is 9.9, white count 4.3, creatinine is 1.33. Influenza and RSV PCR came back negative. DIAGNOSTIC IMPRESSION AND PLAN: Patient admitted to hospital with shortness of breath and cough, concern for pneumonia, possible atypical in this patient with overall improvement on Rocephin and Zithromax; to continue while monitoring his clinical course closely. Continue with supportive care. MMODL / IJN: [id number] /
[2021-08-19] MEDS: HYDROcodone/APAP 10-325MG 1 EACH TAB PO PRN ×4 (01:39→18:53)
[2021-08-19] MEDS ORDERED: LORazepam 2 MG/ML INJ IV STA (07:43)
[2021-08-19] MEDS: IPRATROPIUM-ALBUTEROL 3 ML NEB INHALATION SCH ×4 (07:47→20:35)
[2021-08-19] MEDS: SODIUM CHLORIDE 0.9% 1,000 ML IV SCH ×2 (08:02→17:37)
[2021-08-19] MEDS: PANTOPRAZOLE 40 MG/10 ML VIAL IV SCH (08:03)
[2021-08-19] MEDS: TAMSULOSIN 0.4 MG CAP.ER.24H PO SCH (08:03)
[2021-08-19] MEDS: ATORVASTATIN 10 MG TAB PO SCH (08:03)
[2021-08-19 08:20] LABS: Basophils % (A) 0 %; Eosinophils # (A) 0.3 k/uL (0-0.7); Eosinophils % (A) 8 %; HCT 29.6 % (39.0-53.0); HGB 9.7 gm/dL (13.0-17.5); Lymphocytes # (A) 0.6 k/uL (1.0-4.8); Lymphocytes % (A) 16 %; MCH 33.1 pg (25.0-35.0); MCHC 32.7 g/dL (31.0-37.0); MCV 101.3 fL (80.0-100.0); Mean Platelet Volume 7.7; Monocytes # (A) 0.2 k/uL (0-1.0); Monocytes % (A) 5 %; Neutrophils # (A) 2.6 k/uL (1.3-7.7); Neutrophils % (A) 69 %; Platelet Count 149 k/uL (150-450); RBC 2.92 m/uL (4.30-5.90); RDW 12.7 % (11.5-15.5); WBC 3.8 k/uL (3.8-10.6)
--- NOTE | 2021-08-19 09:29 | CT ---
EXAMINATION TYPE: CT brain wo con DATE OF EXAM: 08/19/2021 COMPARISON: None HISTORY: Altered mental status CT DLP: 1153.4 mGycm Automated exposure control for dose reduction was used. FINDINGS: Moderate degenerative change of the greater frontal lobe component. No midline shift or mass effect. No acute intracranial hemorrhage. Faint low-attenuation the white matter is nonspecific but most typical of remote white matter ischemi a. There is a partially empty sella turcica. Craniocervical junction maintained. Calvarium appears intac t. Orbits are symmetric. Sinuses and mastoid air cells are clear. There is a nasal septal deviation. IMPRESSION: DEGENERATIVE CHANGE OF THE GREATER FRONTAL LOBE COMPONENT AND NO EVIDENCE OF ACUTE HEMORRHAGE OR MASS EFFECT. REMOTE WHITE MATTER ISCHEMIC CHANGE SUSPECTED. IF CLINICAL CONCERN FOR ACUTE ISCHEMIA CORREL ATE WITH MRI CLINICALLY WARRANTED.
[2021-08-19 09:30] LABS: Calcium 8.9 mg/dL (8.4-10.2)
--- NOTE | 2021-08-19 09:39 | CT ---
EXAMINATION TYPE: CT angio chest DATE OF EXAM: 08/19/2021 8:57 AM COMPARISON: None HISTORY: Hypoxia CT DLP: 638.9 mGycm Automated exposure control for dose reduction was used. CONTRAST: CTA scan of the thorax is performed with IV Contrast, patient injected with 80, wasted 36 mL of Isovu e 300, pulmonary embolism protocol. . FINDINGS: Severely limited due to metal motion artifact. Assessment for pulmonary embolism nearly non diagnostic. LUNGS: Motion artifact markedly limits the exam with areas of subsegmental consolidation greater at t he lung base on the right. Underlying COPD suspected. No sizable pneumothorax. Assessment for mass li mited due to the amount of motion artifact. MEDIASTINUM: Evaluation for pulmonary most nondiagnostic. Could not exclude filling defects within th e secondary branches of the bilateral pulmonary arteries. Heart size is prominent. Coronary artery at herosclerotic disease and atherosclerotic change aorta with no evidence of aneurysm. Prominent under surface of the right main pulmonary artery measuring 3.3 cm correlate for pulmonary arterial hyperten thanh. OTHER: Hypertrophic and degenerative changes of the spine. Appears to be a stimulator device within the spinal canal of the thoracic spine but motion artifact limits its assessment. The posterior subcu taneous tissues there is a subcutaneous lesion paramedian to the left on image #34 measuring 1.8 cm w hich is nonspecific. Sebaceous cyst in the differential diagnosis other etiologies are not excluded i ncluding aggressive etiologies. Small hiatal hernia noted. Arthropathy of the shoulders. IMPRESSION: 1. Essentially nondiagnostic assessment for pulmonary embolism due to extreme artifact. There is ques tion of filling defects within the secondary branches of bilateral pulmonary arteries. Therefore, pul monary embolism cannot be excluded. Given the limitation exam consider VQ scan. 2. COPD correlate for bilateral lower lobe infiltrate. 3. Coronary artery atherosclerotic disease. 4. Correlate for pulmonary arterial hypertension
--- NOTE | 2021-08-19 10:24 | P.PN ---
Subjective Progress Note Date: 08/19/21 Nikolai Shabazz is an 85 yo M with PMH of HLD, chronic back pain who presented to the ED with worsening pain over the past few days as well as cough and fever. He states that he has been experiencing R sided abdominal pain for approximately 4 days, reports it comes and goes and currently is not present. He denies nausea, vomiting, constipation or diarrhea. he does complains of chronic back pain for which he takes [place]. He states in the last day or so he developed sweats and cough in addition to his pain and his brought him in for evaluation. On presentation he was febrile, tachycardic, WBC 9.3, Cr 1.96, pro- calcitonin 0.15. CT abd/pelvis with no acute process, sigmoid diverticulosis. D-dimer elevated to 1.89, V/Q scan performed and possible filling defect. 08/16/2021. RN reporting confusion throughout the night, patient pulling IVs out, taking off his oxygen at which time patient desatted to 86% on room air. Currently maintaining O2 sats in the 90s on 9 L. T-max 102, blood cultures ordered. Currently A & O X2. Telemetry sinus rhythm. Abdominal pain significantly improved. Evaluated by surgery with no surgical intervention recommended at this time. Anticoagulated on heparin drip, CTA remains on hold secondary to creatinine. Maintained on Rocephin and azithromycin. IV fluids currently running at 130/h, will decrease. Hemoglobin 9.5, platelets 159. Renal function improved, BUN 39 and creatinine 1.79. 08/19/2021 anxiety better controlled this morning, and was able to lie flat and complete brain/cervical/thoracic/lumbar spine CT, CTA. Creatinine currently at 1.31. Maintained on heparin drip, currently. Hemoglobin 9.7, platelets 149. Hemoglobin 9.7, platelets 149 Pro-calcitonin 0.15 .Continues on Rocephin and Zithromax, maintaining O2 sats in the 90s on 3 L nasal cannula. Recently completed nebulized treatment.Denies chest pain, palpitations or increasing shor tness of breath. Occasional nonproductive cough. Denies abdominal pain, complains of lower back/hip pain. Afebrile, normal WBC, preliminary blood cultures reporting no growth at 48 hours. Objective - Vital Signs Vital signs: Vital Signs Temp 98.0 F 08/19/21 08:03 Pulse 115 H 08/19/21 08:03 Resp 20 08/19/21 08:03 BP 128/77 08/19/21 08:03 Pulse Ox 95 08/19/21 08:03 Intake & Output 08/18/21 08/19/21 08/19/21 18:59 06:59 18:59 Intake Total 368 685.567 140 Output Total 200 Balance 368 485.567 140 Weight 94.4 kg Intake: IV 20 Invasive Line 4 20 Intake, IV Titration 250 685.567 Amount Heparin Sod,Pork in 0.45% 250 235.567 NaCl 25,000 unit In 0.45 % NaCl 1 250ml.bag @ 18 UNITS/KG/HR 14.288 mls/hr IV .[id number] AJ Rx#: [id number] Sodium Chloride 0.9% 1, 400 000 ml @ 80 mls/hr IV . [id number] AJ Rx#:[id number] cefTRIAXone 1 gm In 50 Sodium Chloride 0.9% 50 ml @ 100 mls/hr IVPB Q24H AJ Rx#:[id number] Oral 118 120 Output: Urine 200 Other: Voiding Method Toilet Toilet Toilet Urinal Urinal # Voids 3 2 1 # Bowel Movements 1 1 1 - Exam General: Sitting up in chair, NAD.Vitals reviewed. Eyes: PERRL, EOMI, conjunctiva normal, HENT: normocephalic, mucus membranes moist Neck: supple, no JVD Lungs: normal respiratory effort, bilateral bases diminished, no wheezes or rales CV: Regular rate and rhythm, no murmur. Peripheral pulses 2+ Abdomen: soft, nondistended, nontender, no organomegaly,+BS Skin: warm and dry. Neuro: A&Ox3, normal mood and affect - Labs CBC & Chem 7: 08/19/21 07:42 08/19/21 07:42 Labs: Abnormal Lab Results - Last 24 Hours (Table) 08/18/21 08/18/21 08/18/21 Range/Units 11:30 11:30 11:30 RBC 2.96 L (4.30-5.90) m/uL Hgb 9.9 L (13.0-17.5) gm/dL Hct 30.0 L (39.0-53.0) % MCV 101.3 H (80.0-100.0) fL Plt Count (150-450) k/uL Lymphocytes # 0.6 L (1.0-4.8) k/uL APTT 35.2 H (22.0-30.0) sec Creatinine 1.33 H (0.66-1.25) mg/dL Glucose 104 H (74-99) mg/dL 08/18/21 08/19/21 08/19/21 Range/Units 18:54 07:42 07:42 RBC 2.92 L (4.30-5.90) m/uL Hgb 9.7 L (13.0-17.5) gm/dL Hct 29.6 L (39.0-53.0) % MCV 101.3 H (80.0-100.0) fL Plt Count 149 L (150-450) k/uL Lymphocytes # 0.6 L (1.0-4.8) k/uL APTT 61.4 H (22.0-30.0) sec Creatinine 1.31 H (0.66-1.25) mg/dL Glucose 117 H (74-99) mg/dL 08/19/21 Range/Units 07:42 RBC (4.30-5.90) m/uL Hgb (13.0-17.5) gm/dL Hct (39.0-53.0) % MCV (80.0-100.0) fL Plt Count (150-450) k/uL Lymphocytes # (1.0-4.8) k/uL APTT 61.3 H (22.0-30.0) sec Creatinine (0.66-1.25) mg/dL Glucose (74-99) mg/dL Microbiology - Last 24 Hours (Table) 08/16/21 14:06 Blood Culture - Preliminary Blood No Growth after 48 hours Assessment and Plan Assessment: Acute community-acquired pneumonia, right lower lobe, pro-calcitonin 0.15 Acute hypoxic respiratory failure secondary to the above Fevers Delirium, Acute metabolic encephalopathy, secondary to all the above as well as ER, hospital environment. Elevated d-dimer with indeterminate VQ scan, possible PE. Low suspicion. CTA pending NEETA Abdominal pain, suspect muscloskeletal Chronic back pain, chest pain stimulator BPH History of nicotine dependence Plan: Continue current medication regime ,monitoring and symptomatic treatment. Multiple radiology studies pending including CTA. If CTA negative, discontinue heparin and switch to Lovenox subcu daily. Pulmonary following .Maintain antibiotics. Pain management. Close monitoring of renal function with repeat labs ordered for a.m. The impression and plan of care has been dictated as directed. : I performed a history and examination of this patient, discussed the same with the dictator. I agree with the dictator's note ,documented as a scribe. Any additional findings or plans will be noted.
[2021-08-19] MEDS: HEPARIN SOD,PORK IN 0.45% NACL 25,000 UNIT in 0.45% NACL 1 250ML.BAG IV SCH (11:17)
--- NOTE | 2021-08-19 11:34 | CT ---
EXAMINATION TYPE: CT CervThorLumbar spine wo con DATE OF EXAM: 08/19/2021 COMPARISON: None HISTORY: Entire back pain CT DLP: 2125 mGycm Automated exposure control for dose reduction was used. Contrast: None Technique: Axial images 3 mm thick sections through the entire axial spine. Reconstructed images in t he coronal and sagittal plane are reviewed. There may be some minimal motion artifact present during the exam FINDINGS: Stimulator leads are present 8 through T10. Kyphosis is present through the upper lumbar spine. Disc vacuum phenomenon is noted through the lumba r spine most notably at L1-2, L2-3. Posterior endplate spurring is present L2 inferiorly. There is lo ss of disc height throughout the lumbar spine. Loss of disc height is also present throughout the tho racic spine. There is a cervical lordosis C5-C7 with some kyphosis in the upper cervical spine. Scoli osis is present within the lumbar spine. Compensatory curvatures within the thoracic spine. No acute changes are evident. Cervical spine: Foraminal stenosis from uncovertebral joint hypertrophy is noted at C3-4, C4-5, C5-6-7. 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 Thoracic spine: Loss of disc height is evident throughout the thoracic spine. Lumbar spine: L2-3: L2 endplate spurring from the inferior endplate is present with moderate anterior thecal sac co mpression. This is contributing to spinal canal stenosis. This appears to impinge into the canal appr oximately 1.2 cm. Spinal canal stenosis is present. Laminectomy of L3 is evident. Below the spinous p rocess of L2 no stenosis is evident. Severe foraminal stenosis is present bilaterally at L2-3. L3-4: Endplate spurring at L3-4 is also evident with significant thecal sac compression estimated at 0.7 cm. Laminectomy decompresses the canal somewhat. Moderate right and moderate to severe left kisha inal stenosis is present. A grade 1 retrolisthesis of L3 on L4 may be present. L4-5: Residual disc bulging is present L4-5. Facet hypertrophy and ligamentum flavum laxity is contin ued into spinal canal narrowing through this level. L5-S1: At L5-S1 Posterior endplate spurring is present into the right paracentral canal measures 0.7 cm. Foraminal stenosis is present. A grade 1 retrolisthesis of L5 on S1 may be present. Note is made of a consolidation in the posterior right lung base. Correlate for atelectasis or pneumo concha. Small hiatal hernia is present. Interval bilateral pleural effusions are present. There is some fusiform prominence of the mid abdominal aorta with an AP diameter of 3.5 cm. IMPRESSION: 1. SPINAL CANAL STENOSIS DUE TO ENDPLATE SPURRING AT L3-4 AND L5-S1. 2. SEVERE FORAMINAL STENOSIS LEFT L3-4. ADDITIONAL AREAS OF FORAMINAL STENOSIS ARE DISCUSSED ABOVE. 3. DIFFUSE LOSS OF DISC HEIGHT THROUGHOUT THE SCOLIOTIC THORACIC AND LUMBAR SPINE. 4. 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
[2021-08-19] MEDS: APIXABAN 5 MG TAB PO SCH ×2 (15:09→23:09)
--- NOTE | 2021-08-19 18:15 | P.PN ---
Subjective Progress Note Date: 08/19/21 Principal diagnosis: Acute febrile illness, possible underlying right lower lobe pneumonia. This is an 85-year-old male patient, who was brought into the emergency department today because of pain. According to the family was at the bedside, his pain is chronic and the patient has diffuse pain and more specifically in his lower back for many years. The patient undergone previous spine surgery and the patient has a pain stimulator in place that was inserted at least 5 years ago. Nevertheless, the patient has been under poor control and the patient has been taking Glenvil for pain control. Over the past 2 days, the pain has gotten worse. The exact location of the pain is not clear. The patient was pointing to his abdomen mostly on the right. At the same time he pointed out to his neck and upper back area. He is a very unreliable historian. In fact I feel like he is confused at this point in time and is unable to provide any history. His does work and when she came home from work she found them and this condition she opted to bring him to the hospital. Here in the hospital, the patient has started on some further investigation. The patient was found to be febrile at the time of admission. Note that he has no seizure activity. No neck stiffness. No focal neurological deficit. At time he is shaking and is a bit restless in bed. A white cell count of 9.3 with hemoglobin of 12.3, d-dimer was at 1.89, electrolytes were normal and the patient a BUN of 47 with a creatinine of 1.96 consistent with an acute kidney injury. Lactic acid level is at 1.4, LFTs are normal, UA is normal,COVID 19 testing came back negative. Chest x-ray showed some limited atelectatic changes in lung base on the right. No evidence of any pneumonia. VQ scan showed some perfusion defect abnormalities and for that reason the patient was started on IV heparin. Stephanie gleason, the presentation is not typical of pulmonary embolism and the patient has a Doppler of the lower extremity that has been negative for any DVTs. No reported falls. No reported head trauma. No significant cough or sputum production. No nausea. No vomiting. No diarrhea. No abdominal pain. Amylase and lipase have been within normal limits. LFTs are within normal limits. Glucose at 126. Patient is currently on IV fluids in the form of normal saline at the rate of 75 mL an hour and the patient is also on IV heparin per emergency room physicians. Evaluation of 08/16/2021, the patient is more comfortable compared to yesterday. He is not complaining of much pain. He is responsive and his communicating. Denies having any shortness of breath. No pleurisy. No cough or sputum production. At times he is still confused. He remains a unreliable historian. I ordered a CAT scan of his neck and his spine yesterday and this was not completed and the patient declined to undergo the testing and this was not found. I also placed a consultation for urology and the patient has not been seen by neurology at. He is afebrile for now. The pro-calcitonin level was at 0.15. Creatinine is down to 1.7 with a mean of 39, sodium is at 138, PTT is therapeutic and is to be adjusted, white cell count is at 4.8 hemoglobin 9.5. Doppler of the lower extremity has also been negative. 08/17/2021, the patient's mental status improved. His much more comfortable and his communicating. Denies having any chest pain. He had a uneventful night and he is still on 5 L of oxygen by nasal cannula with a pulse is a 96%. He remains on IV heparin. Blood work is still pending for now. Meanwhile, the patient is no fever today. He remains on broad-spectrum antibiotics. He was seen by neurology. CAT scan of the spine and the head is still pending for now. I again doubt the possibility of pulmonary embolism in this patient. I'm going to proceed with a CT angiogram once his renal function normalizes. I'm awaiting a follow-up labs from today. 08/18/2021, the patient feels that he did have a good night to sleep. He is currently awake and alert and following commands and answering questions. He remains on oxygen at 3 L per minute nasal cannula. He remains afebrile. He remains on antibiotics. Renal function continues to improve in the creatinine is down to 1.3. As stated earlier, I'm not convinced that the patient has pulmonary embolism. I'm going to undergo a CT angiogram once renal function is further normalized.The patient did also have some diarrhea earlier. CAT scan of the brain was completed today and the results are still pending and the patient is being seen by neurology. White cell count 4.4 with a hemoglobin of 10.2 and a platelet count of 147. PTT is therapeutic at 51 as the patient is currently on IV heparin. The patient's creatinine is at 1.37, improved compared to yesterday, follow-up labs are still pending from today. Influenza screen are negative. Patient remains empirically on antibiotics, is also on bronchodilators, Reevaluated today on 08/19/21, patient is awake, alert, doing relatively well, he is presently on 3 L nasal cannula, and his O2 saturation is 95%. Patient was found to have foraminal stenosis at C3-C4 and C4-C5 C5-C6, and he was also found to have spinal canal stenosis at L3-L4 and L5-S1. And degenerative changes and kyphosis and lordosis within the cervical spine. WBC count today is 3.8 hemoglobin is 9.7, PTT is 61.3, his CT angiogram of the chest, clearly raised the possibility of underlying pulmonary embolism, however is not truly diagnostic. But considering the presentation and considering his abnormal VQ scan, I believe it is best to treat the patient as pulmonary embolism unless proven otherwise. Electrolytes are normal renal profile showed a BUN of 13, and creatinine 1.31. Today I'm recommending that we continue the patient on Eliquis. 5 mg twice a day. And discontinue heparin. Objective - Vital Signs Vital signs: Vital Signs Temp 99.1 F 08/19/21 15:44 Pulse 92 08/19/21 15:44 Resp 22 08/19/21 15:44 BP 151/80 08/19/21 15:44 Pulse Ox 95 08/19/21 15:44 Intake & Output 08/18/21 08/19/21 08/19/21 18:59 06:59 18:59 Intake Total 368 160.799 5746.623 Output Total 200 800 Balance 368 485.567 255.623 Weight 94.4 kg Intake: IV 20 Invasive Line 4 20 Intake, IV Titration 250 685.567 795.623 Amount Heparin Sod,Pork in 0.45% 250 235.567 75.623 NaCl 25,000 unit In 0.45 % NaCl 1 250ml.bag @ 18 UNITS/KG/HR 14.288 mls/hr IV .[id number] [facility] Rx#: [id number] Sodium Chloride 0.9% 1, 400 720 000 ml @ 80 mls/hr IV . [id number] [facility] Rx#:[id number] cefTRIAXone 1 gm In 50 Sodium Chloride 0.9% 50 ml @ 100 mls/hr IVPB Q24H [facility] Rx#:[id number] Oral 118 240 Output: Urine 200 800 Other: Voiding Method Toilet Toilet Toilet Urinal Urinal # Voids 3 2 1 # Bowel Movements 1 1 1 - Exam Physical Exam revealed 85-year-old white male in no distress, on 3 L nasal cannula. HEENT:[Neck is supple.] [No neck masses.] [No thyromegaly.] [No JVD.] Chest: [Clear throughout, no crackles, no rhonchi, no wheezes.] Cardiac Exam: [Normal S1 and S2, no S3 gallop, no murmur.] Abdomen: [Soft, nontender, no megaly, no rebound, no guarding, normal bowel sounds.] Extremities: [No clubbing, no edema, no cyanosis.] Neurological Exam: [No focal neurologic deficit.] Alert and oriented 3. Skin: No rashes. Psychiatric: Normal mood affect and normal mental status examination. - Labs CBC & Chem 7: 08/19/21 07:42 08/19/21 07:42 Labs: Abnormal Lab Results - Last 24 Hours (Table) 08/18/21 08/19/21 08/19/21 Range/Units 18:54 07:42 07:42 RBC 2.92 L (4.30-5.90) m/uL Hgb 9.7 L (13.0-17.5) gm/dL Hct 29.6 L (39.0-53.0) % MCV 101.3 H (80.0-100.0) fL Plt Count 149 L (150-450) k/uL Lymphocytes # 0.6 L (1.0-4.8) k/uL APTT 61.4 H (22.0-30.0) sec Creatinine 1.31 H (0.66-1.25) mg/dL Glucose 117 H (74-99) mg/dL 08/19/21 Range/Units 07:42 RBC (4.30-5.90) m/uL Hgb (13.0-17.5) gm/dL Hct (39.0-53.0) % MCV (80.0-100.0) fL Plt Count (150-450) k/uL Lymphocytes # (1.0-4.8) k/uL APTT 61.3 H (22.0-30.0) sec Creatinine (0.66-1.25) mg/dL Glucose (74-99) mg/dL Microbiology - Last 24 Hours (Table) 08/16/21 14:06 Blood Culture - Preliminary Blood No Growth after 72 hours Assessment and Plan Assessment: Impression: Acute hypoxic respiratory failure secondary to pulmonary embolism and possible underlying right lower lobe community-acquired pneumonia. Patient is now on Eliquis, is also on Rocephin and Zithromax. Chronic back pain, workup is in progress. Acute kidney injury, improving. Benign essential hypertension. Dyslipidemia. Benign prostatic hypertrophy. Underlying dementia with altered mental status. Recommendation: Continue oxygen and titrate accordingly. Reviewed the results of the CT angiogram of the chest, and I'm recommending we treated the patient with Eliquis, patient has pulmonary embolism unless for otherwise. Continue empiric antibiotics. Continue bronchodilators. Continue GI prophylaxis. Continue Seroquel. We will continue to follow. Time with Patient: Less than 30
--- NOTE | 2021-08-19 18:21 | PN ---
PROGRESS NOTE DATE OF SERVICE: 08/19/2021 REASON FOR FOLLOWUP: Fever, likely pneumonia. INTERVAL HISTORY: Patient is afebrile. The patient is breathing more comfortably. Denies any chest pain. No worsening cough. No abdominal pain or diarrhea. PHYSICAL EXAMINATION: Blood pressure 136/77 with a pulse of 93. Temperature is 97.8. He is 95% on 3 L nasal cannula. General description is an elderly male lying in bed in no distress. Respiratory system: Unlabored breathing, decreased intensity in the bases. No wheeze. Heart S1, S2. Regular rate and rhythm. Abdomen soft, no tenderness. LABS: Hemoglobin 11.7, white count 8.8, BUN of 13, creatinine 1.31. DIAGNOSTIC IMPRESSION AND PLAN: Patient admitted to the hospital with fever, possible component of pneumonia as no other obvious focus of infection. The patient overall fever responding to the Rocephin to continue, finish course of oral Ceftin and continue supportive care. MMODL / IJN: [id number] /
[2021-08-19] MEDS: QUEtiapine 25 MG TAB PO SCH (20:30)
[2021-08-19] MEDS: AZITHROMYCIN 500 MG TAB PO SCH (20:30)
[2021-08-19] MEDS: HYDROmorphone 0.5 MG/0.5 ML SYRINGE IVP PRN (23:09)
[2021-08-20] MEDS: HYDROcodone/APAP 10-325MG 1 EACH TAB PO PRN ×3 (04:11→20:47)
[2021-08-20] MEDS: ACETAMINOPHEN TAB 325 MG TAB PO PRN (06:37)
[2021-08-20] MEDS: IPRATROPIUM-ALBUTEROL 3 ML NEB INHALATION SCH ×4 (07:32→20:47)
[2021-08-20] MEDS: APIXABAN 5 MG TAB PO SCH ×2 (08:13→20:49)
[2021-08-20] MEDS: ATORVASTATIN 10 MG TAB PO SCH (08:13)
[2021-08-20] MEDS: PANTOPRAZOLE 40 MG/10 ML VIAL IV SCH (08:13)
[2021-08-20] MEDS: TAMSULOSIN 0.4 MG CAP.ER.24H PO SCH (08:15)
[2021-08-20] MEDS: SODIUM CHLORIDE 0.9% 1,000 ML IV SCH (08:16)
[2021-08-20] MEDS: HYDROmorphone 0.5 MG/0.5 ML SYRINGE IVP PRN (15:01)
--- NOTE | 2021-08-20 15:03 | P.PN ---
Subjective Progress Note Date: 08/20/21 Nikolai Shabazz is an 85 yo M with PMH of HLD, chronic back pain who presented to the ED with worsening pain over the past few days as well as cough and fever. He states that he has been experiencing R sided abdominal pain for approximately 4 days, reports it comes and goes and currently is not present. He denies nausea, vomiting, constipation or diarrhea. he does complains of chronic back pain for which he takes [place]. He states in the last day or so he developed sweats and cough in addition to his pain and his brought him in for evaluation. On presentation he was febrile, tachycardic, WBC 9.3, Cr 1.96, pro- calcitonin 0.15. CT abd/pelvis with no acute process, sigmoid diverticulosis. D-dimer elevated to 1.89, V/Q scan performed and possible filling defect. 08/16/2021. RN reporting confusion throughout the night, patient pulling IVs out, taking off his oxygen at which time patient desatted to 86% on room air. Currently maintaining O2 sats in the 90s on 9 L. T-max 102, blood cultures ordered. Currently A & O X2. Telemetry sinus rhythm. Abdominal pain significantly improved. Evaluated by surgery with no surgical intervention recommended at this time. Anticoagulated on heparin drip, CTA remains on hold secondary to creatinine. Maintained on Rocephin and azithromycin. IV fluids currently running at 130/h, will decrease. Hemoglobin 9.5, platelets 159. Renal function improved, BUN 39 and creatinine 1.79. 08/19/2021 anxiety better controlled this morning, and was able to lie flat and complete brain/cervical/thoracic/lumbar spine CT, CTA. Creatinine currently at 1.31. Maintained on heparin drip, currently. Hemoglobin 9.7, platelets 149. Hemoglobin 9.7, platelets 149 Pro-calcitonin 0.15 .Continues on Rocephin and Zithromax, maintaining O2 sats in the 90s on 3 L nasal cannula. Recently completed nebulized treatment.Denies chest pain, palpitations or increasing shor tness of breath. Occasional nonproductive cough. Denies abdominal pain, complains of lower back/hip pain. Afebrile, normal WBC, preliminary blood cultures reporting no growth at 48 hours. 08/20/2021 Chest CTA reported possibility of PE, placed on Eliquis as per pulmonary related to abnormal VQ scan clinical presentation. Cervical/thoracic/lumbar spine CT reported foraminal stenosis at C3-C4 and C4-C5 C5-C6, spinal canal stenosis at L3-L4 and L5-S1, as well as degenerative changes,kyphosis and lordosis within the cervical spine-follows outpatient with Dr. Patterson orthopedic spine surgeon. Maintaining O2 sats in the 90s on 3 L nasal cannula. Afebrile, normal WBC. Hemoglobin 9.7, platelets 149. Renal function stable, creatinine 1.31. Evaluated by PT/OT recommending subacute rehab. Objective - Vital Signs Vital signs: Vital Signs Temp 98.3 F 08/20/21 11:12 Pulse 86 08/20/21 13:05 Resp 22 08/20/21 11:12 BP 159/90 08/20/21 11:12 Pulse Ox 94 L 08/20/21 13:05 Intake & Output 08/19/21 08/20/21 08/20/21 18:59 06:59 18:59 Intake Total 1175.623 476 Output Total 800 225 Balance 375.623 251 Weight 95.7 kg Intake: IV 20 Invasive Line 4 20 Intake, IV Titration 795.623 240 Amount Heparin Sod,Pork in 0.45% 75.623 NaCl 25,000 unit In 0.45 % NaCl 1 250ml.bag @ 18 UNITS/KG/HR 14.288 mls/hr IV .[id number] [facility] Rx#: [id number] Sodium Chloride 0.9% 1, 720 240 000 ml @ 80 mls/hr IV . [id number] [facility] Rx#:[id number] Oral 360 236 Output: Urine 800 225 Other: Voiding Method Toilet Toilet Toilet Urinal Urinal Bedside Commode Urinal # Voids 1 1 2 # Bowel Movements 1 1 1 - Exam General: Sitting up in chair, NAD.Vitals reviewed. Eyes: PERRL, EOMI, conjunctiva normal, HENT: normocephalic, mucus membranes moist Neck: supple, no JVD Lungs: normal respiratory effort, bilateral bases diminished, no wheezes or rales CV: Regular rate and rhythm, no murmur. Peripheral pulses 2+ Abdomen: soft, nondistended, nontender, no organomegaly,+BS Skin: warm and dry. Neuro: A&Ox3, normal mood and affect - Labs CBC & Chem 7: 08/19/21 07:42 08/19/21 07:42 Labs: Microbiology - Last 24 Hours (Table) 08/16/21 14:06 Blood Culture - Preliminary Blood No Growth after 72 hours Assessment and Plan Assessment: Acute community-acquired pneumonia, right lower lobe, pro-calcitonin 0.15 Acute PE Acute hypoxic respiratory failure secondary to the above Fevers Delirium, Acute metabolic encephalopathy, secondary to all the above as well as ER, hospital environment. NEETA Abdominal pain, suspect muscloskeletal Chronic back pain, chest pain stimulator BPH History of nicotine dependence Plan: Continue current medication regime ,monitoring and symptomatic treatment. Eliquis initiated for anticoagulation regarding PE. Patient and family agreeable, requesting Anisa ERAZO Neurology clearance pending. Discharge planning in progress for subacute rehab., authorization pending. The impression and plan of care has been dictated as directed. : I performed a history and examination of this patient, discussed the same with the dictator. I agree with the dictator's note ,documented as a scribe. Any additional findings or plans will be noted.
--- NOTE | 2021-08-20 16:15 | P.PN ---
Subjective Progress Note Date: 08/20/21 Principal diagnosis: Dyspnea On 08/20/2021 patient seen in follow-up on selective care unit, is resting comfortably in bed, in no acute distress. His breathing has been stable, w ithout worsening, no fever or chills overnight, vital signs have been stable, no complaints of chest pain, no hemoptysis. No wheezing, or rales on physical exam. Patient remains on a combination of azithromycin and Rocephin for possibility of pneumonia, was also started on Eliquis for possibility of acute PE. Heparin drip has been discontinued, his labs today have been reviewed showing white blood cell count 3.8, hemoglobin of 9.7, electrolytes were within normal limits, renal profile has improved, creatinine is down to 1.31, BUN is 13. Had no acute events overnight. Generally patient is weak, he was evaluated by physical therapy and subacute rehab placement was recommended. Otherwise no acute events overnight, clinically he is improving, Objective - Vital Signs Vital signs: Vital Signs Temp 98.9 F 08/20/21 15:33 Pulse 90 08/20/21 15:33 Resp 24 08/20/21 15:33 BP 155/78 08/20/21 15:33 Pulse Ox 94 L 08/20/21 15:33 Intake & Output 08/19/21 08/20/21 08/20/21 18:59 06:59 18:59 Intake Total 1175.623 476 Output Total 800 225 Balance 375.623 251 Weight 95.7 kg Intake: IV 20 Invasive Line 4 20 Intake, IV Titration 795.623 240 Amount Heparin Sod,Pork in 0.45% 75.623 NaCl 25,000 unit In 0.45 % NaCl 1 250ml.bag @ 18 UNITS/KG/HR 14.288 mls/hr IV .[id number] [facility] Rx#: [id number] Sodium Chloride 0.9% 1, 720 240 000 ml @ 80 mls/hr IV . [id number] [facility] Rx#:[id number] Oral 360 236 Output: Urine 800 225 Other: Voiding Method Toilet Toilet Toilet Urinal Urinal Bedside Commode Urinal # Voids 1 1 2 # Bowel Movements 1 1 1 - Exam GENERAL EXAM: Alert, very pleasant, 85-year-old obese white male, resting in bed, currently on 3 L of oxygen pulse ox of 94% comfortable in no apparent distress. HEAD: Normocephalic/atraumatic. EYES: Normal reaction of pupils, equal size. Conjunctiva pink, sclera white. NOSE: Clear with pink turbinates. THROAT: No erythema or exudates. NECK: No masses, no JVD, no thyroid enlargement, no adenopathy. CHEST: No chest wall deformity. Symmetrical expansion. LUNGS: Equal air entry with no crackles, wheeze, rhonchi or dullness. CVS: Regular rate and rhythm, normal S1 and S2, no gallops, no murmurs, no rubs ABDOMEN: Soft, nontender. No hepatosplenomegaly, normal bowel sounds, no gu arding or rigidity. EXTREMITIES: No clubbing, no edema, no cyanosis, 2+ pulses and upper and lower e xtremities. MUSCULOSKELETAL: Muscle strength and tone normal. SPINE: No scoliosis or deformity SKIN: No rashes CENTRAL NERVOUS SYSTEM: Alert and oriented -3. No focal deficits, tone is normal in all 4 extremities. PSYCHIATRIC: Alert and oriented -3. Appropriate affect. Intact judgment and insight. - Labs CBC & Chem 7: 08/19/21 07:42 08/19/21 07:42 Labs: Microbiology - Last 24 Hours (Table) 08/16/21 14:06 Blood Culture - Preliminary Blood No Growth after 72 hours Assessment and Plan Plan: Assessment: #1. Acute febrile illness with acute hypoxia, the possibility of community acquired pneumonia, patient was treated with combination of Rocephin and azithromycin. #2. Possible underlying pulmonary embolism, VQ scan showed perfusion abnormality within the lateral margin of the right lung. CT chest was completed and was nondiagnostic for pulmonary embolism due to his extreme artifact, and there was questionable filling defects within the secondary branches of bilateral pulmonary arteries. Given these findings and given patient's limited mobility we recommended proceeding with placement on Eliquis at least the next 3 months #3. Chronic back pain, patient has a pain stimulator in his lumbar spine #4. Altered mentation, improved and patient is back to baseline #5. Acute kidney injury, improved #6. History of hypertension #7. Hyperlipidemia #8. BPH #9. Possible underlying dementia Plan: Clinically patient has been stable, his breathing has improved No fever or chills vital signs are stable Renal function is improving Continue with oral anticoagulation for 3 months Patient was started on Eliquis Outpatient course of oral antibiotics Stable for discharge to rehab from pulmonary perspective We'll need outpatient follow-up with Dr. Chen in the office in 2 weeks I performed a history & physical examination of the patient and discussed their management with my nurse practitioner, Venessa Gutierrez. I reviewed the nurse practitioner's note and agree with the documented findings and plan of care. Lung sounds are positive for diminished breath sounds throughout the lung [place]. The findings and the impression was discussed with the patient. I attest to the documentation by the nurse practitioner. Time with Patient: Less than 30
[2021-08-20] MEDS: BENZOCAINE/MENTHOL LOZENG 1 EACH LOZENGE MUCOUS MEM PRN (16:39)
--- NOTE | 2021-08-20 20:01 | P.PN ---
Subjective Progress Note Date: 08/20/21 Patient initially seen by Dr. Kuldeep Brownlee. Please refer to his note for details. Patient is a 85-year-old male, who has been complaining of pain in favor, with T-max of 101.0. Neurology was consulted for altered mental status. Patient has been complaining of severe pain in the neck, low back region. Patient's mentation is now back to normal. Patient does not feel comfortable in any position. Patient had borderline B12 of 348 for which he is on replacement. Patient at present complaining of low back pain 8-06/14. It involves the right sacroiliac region, without radiation to the legs, right more than left. Telemetry monitoring showing sinus rhythm, sinus tachycardia, sinus arrhythmia. Objective - Vital Signs Vital signs: Vital Signs Temp 98.9 F 08/20/21 15:33 Pulse 90 08/20/21 15:33 Resp 24 08/20/21 15:33 BP 155/78 08/20/21 15:33 Pulse Ox 94 L 08/20/21 15:33 Intake & Output 08/19/21 08/20/21 08/20/21 18:59 06:59 18:59 Intake Total 1175.623 476 Output Total 800 225 Balance 375.623 251 Weight 95.7 kg Intake: IV 20 Invasive Line 4 20 Intake, IV Titration 795.623 240 Amount Heparin Sod,Pork in 0.45% 75.623 NaCl 25,000 unit In 0.45 % NaCl 1 250ml.bag @ 18 UNITS/KG/HR 14.288 mls/hr IV .[id number] [facility] Rx#: [id number] Sodium Chloride 0.9% 1, 720 240 000 ml @ 80 mls/hr IV . [id number] [facility] Rx#:[id number] Oral 360 236 Output: Urine 800 225 Other: Voiding Method Toilet Toilet Toilet Urinal Urinal Bedside Commode Urinal # Voids 1 1 2 # Bowel Movements 1 1 1 - Exam Patient's mental status speech and language functions are normal. Patient knows that he lives in the [facility]. He was not concentrating to tell the answers about the month or the year. Cranial nerves are normal. Muscle strength is normal in the arms and legs. Hip flexion is 4 bilaterally otherwise ankles and upper extremities are normal. - Labs CBC & Chem 7: 08/19/21 07:42 08/19/21 07:42 Labs: Microbiology - Last 24 Hours (Table) 08/16/21 14:06 Blood Culture - Preliminary Blood No Growth after 96 hours Assessment and Plan Assessment: Altered mental status, likely due to metabolic encephalopathy and slight hypoxic encephalopathy, now back to normal. Fever, likely due to pneumonia, now improved on Rocephin. ID following. Chronic neck and lower back pain for at least 6 months and progressively getting worse. Acute kidney insufficiency slightly trending down Chronic lower back pain and has a pain stimulator History of hypertension History of Hyperlipidemia Plan: * CT head revealed degenerative change of the greater frontal lobe component and no evidence of acute hemorrhage or mass effect. Remote white matter ischemic change suspected. If clinical concern for acute ischemia, correlate with MRI. No indication for MRI based upon clinical history. * CT of the lumbar spine showed spinal canal stenosis due to endplate spurring at L3 4 and L5-S1. Severe foraminal stenosis left L3 4. Additional areas of foraminal stenosis. Diffuse loss of disc height throughout the scoliotic thoracic and lumbar spine. We will consult orthopedics spine for severe back pain and spinal stenosis. * Cannot get MRI brain since has stimulator. * Since the patient has low vitamin B12 start the patient on vitamin B12 1000 g daily. * TSH is 0.208 and we'll defer the management to the primary team. * Neurologically clear, if cleared by orthopedic spine.
[2021-08-20] MEDS: QUEtiapine 25 MG TAB PO SCH (20:49)
[2021-08-20] MEDS: AZITHROMYCIN 500 MG TAB PO SCH (20:49)
--- NOTE | 2021-08-20 21:42 | PN ---
PROGRESS NOTE DATE OF SERVICE: 08/20/2021 REASON FOR FOLLOWUP: Pneumonia. INTERVAL HISTORY: Patient is afebrile, has been breathing slightly comfortably. Denies having any chest pain. Occasional cough. No abdominal pain. No diarrhea. PHYSICAL EXAMINATION: Blood pressure 186/78 with a pulse of 97, temperature 98.1. He is 94% on 3 L nasal cannula. General description is an elderly male up in the bed in no distress. Respiratory system: Unlabored breathing, decreased intensity of breath sounds. No wheeze. Heart S1, S2. Regular rate and rhythm. Abdomen soft, no tenderness. LABS: Hemoglobin 9.7, white count 3.8, creatinine 1.31. DIAGNOSTIC IMPRESSION AND PLAN: The patient with fever concerning for pneumonia in this patient resolution of fever on Rocephin, Zithromax, transition to oral Ceftin on discharge to finish a course of therapy. Continue supportive care. MMODL / IJN: [id number] / MTDD
[2021-08-21] MEDS: HYDROcodone/APAP 10-325MG 1 EACH TAB PO PRN ×2 (01:55→06:31)
[2021-08-21] MEDS: BENZOCAINE/MENTHOL LOZENG 1 EACH LOZENGE MUCOUS MEM PRN (01:55)
[2021-08-21] MEDS: IPRATROPIUM-ALBUTEROL 3 ML NEB INHALATION SCH ×2 (08:33→11:57)
--- NOTE | 2021-08-21 08:39 | P.DS ---
Providers Date of admission: 08/15/21 01:33 Expected date of discharge: 08/20/21 Attending physician: Bassam Dee MD Consults: 08/15/21 01:35 Consult Physician Routine Consulting Provider: Seble Chen Consult Reason/Comments: hypoxia Do you want consulting provider notified?: Yes 08/16/21 11:17 Consult Physician Routine Consulting Provider: Kuldeep Brownlee Consult Reason/Comments: altered mentation Do you want consulting provider notified?: Yes 08/16/21 17:17 Consult Physician Routine Consulting Provider: Bubba Lancaster Consult Reason/Comments: pyrexia of uknown etiology Do you want consulting provider notified?: Yes Primary care physician: Randi Ruiz Hospital Course: Final Diagnoses: Acute community-acquired pneumonia, right lower lobe, pro-calcitonin 0.15 Acute PE Acute hypoxic respiratory failure secondary to the above Fevers Delirium, Acute metabolic encephalopathy, secondary to all the above as well as ER, hospital environment. NEETA Abdominal pain, spinal stenosis, follows with Dr. Patel, Orthopedic-spine Chronic back pain, chest pain stimulator BPH COPD, stable History of nicotine dependence Hospital course:Nikolai Shabazz is an 85 yo M with PMH of HLD, chronic back pain who presented to the ED with worsening pain over the past few days as well as cough and fever. He states that he has been experiencing R sided abdominal pain for approximately 4 days, reports it comes and goes and currently is not present. He denies nausea, vomiting, constipation or diarrhea. he does complains of chronic back pain for which he takes Hawthorne. He states in the last day or so he developed sweats and cough in addition to his pain and his brought him in for evaluation. On presentation he was febrile, tachycardic, WBC 9.3, Cr 1.96, pro-calcitonin 0.15. CT abd/pelvis with no acute process, sigmoid diverticulosis. D-dimer elevated to 1.89, V/Q scan performed and possible filling defect. 08/16/2021. RN reporting confusion throughout the night, patient pulling IVs out, taking off his oxygen at which time patient desatted to 86% on room air. Currently maintaining O2 sats in the 90s on 9 L. T-max 102, blood cultures ordered. Currently A & O X2. Telemetry sinus rhythm. Abdominal pain significantly improved. Evaluated by surgery with no surgical intervention recommended at this time. Anticoagulated on heparin drip, CTA remains on hold secondary to creatinine. Maintained on Rocephin and azithromycin. IV fluids currently running at 130/h, will decrease. Hemoglobin 9.5, platelets 159. Renal function improved, BUN 39 and creatinine 1.79. 08/19/2021 anxiety better controlled this morning, and was able to lie flat and complete brain/cervical/thoracic/lumbar spine CT, CTA. Creatinine currently at 1.31. Maintained on heparin drip, currently. Hemoglobin 9.7, platelets 149. Hemoglobin 9.7, platelets 149 Pro-calcitonin 0.15 .Continues on Rocephin and Zithromax, maintaining O2 sats in the 90s on 3 L nasal cannula. Recently completed nebulized treatment.Denies chest pain, palpitations or increasing shortness of breath. Occasional nonproductive cough. Denies abdominal pain, complains of lower back/hip pain. Afebrile, normal WBC, preliminary blood cultures reporting no growth at 48 hours. 08/20/2021 Chest CTA reported possibility of PE, placed on Eliquis as per pulmonary related to abnormal VQ scan clinical presentation. Cervical/thoracic/lumbar spine CT reported foraminal stenosis at C3-C4 and C4-C5 C5-C6, spinal canal stenosis at L3-L4 and L5-S1, as well as degenerative changes,kyphosis and lordosis within the cervical spine-follows outpatient with Dr. Patterson orthopedic spine surgeon. Maintaining O2 sats in the 90s on 3 L nasal cannula. Afebrile, normal WBC. Hemoglobin 9.7, platelets 149. Renal function stable, creatinine 1.31. Evaluated by PT/OT recommending subacute rehab. Significant clinical improvement. Cleared by infectious disease, pulmonary, neurology(-pending orthopedic spine clearance )for discharge. Patient will be discharged to [facility] subacute rehab., In a stable condition with guarded prognosis, today pending orthopedic spine clearance. The impression and plan of care has been dictated as directed. : I performed a history and examination of this patient, discussed the same with the dictator. I agree with the dictator's note ,documented as a scribe. Any additional findings or plans will be noted. Patient Condition at Discharge: Stable Plan - Discharge Summary Discharge Rx Participant: No New Discharge Prescriptions: New Cefuroxime Axetil [Ceftin] 500 mg PO BID 5 Days #10 tab Ipratropium-Albuterol Nebulize [Duoneb 0.5 mg-3 mg/3 ml Soln] 3 ml INHALATION RT-QID ml Ipratropium-Albuterol Nebulize [Duoneb 0.5 mg-3 mg/3 ml Soln] 3 ml INHALATION Q4H PRN ml PRN Reason: Shortness Of Breath Or Wheezing Apixaban [Eliquis Starter Pack (for VTE)] 5 - 10 mg PO DIRECTED 30 Days #1 each Apixaban [Eliquis] 5 mg PO BID tab QUEtiapine [SEROquel] 25 mg PO HS tab Acetaminophen Tab [Tylenol] 650 mg PO Q6HR PRN tab PRN Reason: Mild Pain Or Fever > 100.5 Continue Simvastatin [Zocor] 20 mg PO DAILY Tamsulosin HCl [Flomax] 0.4 mg PO DAILY HYDROcodone/APAP 10-325MG [Hawthorne 10-325] 1 tab PO QID PRN #12 tab PRN Reason: Pain Discontinued Enalapril Maleate 10 mg PO DAILY Dipyridamole [Persantine] 75 mg PO BID Albuterol Inhaler [Ventolin Hfa Inhaler] 2 puff INHALATION RT-QID PRN PRN Reason: Shortness Of Breath Discharge Medication List Simvastatin [Zocor] 20 mg PO DAILY 08/14/21 [History] Tamsulosin HCl [Flomax] 0.4 mg PO DAILY 08/14/21 [History] Acetaminophen Tab [Tylenol] 650 mg PO Q6HR PRN tab 08/20/21 [Rx] Apixaban [Eliquis Starter Pack (for VTE)] 5 - 10 mg PO DIRECTED 30 Days #1 each 08/20/21 [Rx] Apixaban [Eliquis] 5 mg PO BID tab 08/20/21 [Rx] Cefuroxime Axetil [Ceftin] 500 mg PO BID 5 Days #10 tab 08/20/21 [Rx] HYDROcodone/APAP 10-325MG [Hawthorne 10-325] 1 tab PO QID PRN #12 tab 08/20/21 [Rx] Ipratropium-Albuterol Nebulize [Duoneb 0.5 mg-3 mg/3 ml Soln] 3 ml INHALATION Q4H PRN ml 08/20/21 [Rx] Ipratropium-Albuterol Nebulize [Duoneb 0.5 mg-3 mg/3 ml Soln] 3 ml INHALATION RT-QID ml 08/20/21 [Rx] QUEtiapine [SEROquel] 25 mg PO HS tab 08/20/21 [Rx] Follow up Appointment(s)/Referral(s): Bassam Dee MD [STAFF PHYSICIAN] - 3 Days Seble Chen MD [STAFF PHYSICIAN] - 1 Week Activity/Diet/Wound Care/Special Instructions: pending Orthopedic spine clearance. Add in to dc med list Vit B12 1000mcg po daily. Patient requires home oxygen at discharge due to hypoxia from COPD ECF: [facility] CBC, BMP in 3 days Thyroid panel OP Discharge Disposition: TRANSFER TO SNF/ECF
[2021-08-21] MEDS: PANTOPRAZOLE 40 MG/10 ML VIAL IV SCH (08:50)
[2021-08-21] MEDS: TAMSULOSIN 0.4 MG CAP.ER.24H PO SCH (08:50)
[2021-08-21] MEDS: APIXABAN 5 MG TAB PO SCH (08:50)
[2021-08-21] MEDS: ATORVASTATIN 10 MG TAB PO SCH (08:51)
[2021-08-21] MEDS: HYDROmorphone 0.5 MG/0.5 ML SYRINGE IVP PRN (08:59)
[2021-08-21 12:05] VITALS: BP 154/72; RESP 20; TEMP 97.8
[2021-08-21 12:24] VITALS: PULSE 74
--- NOTE | 2021-08-21 12:53 | P.PN ---
Progress Note - Text Progress Note Date: 08/21/21 REASON FOR FOLLOWUP: Pneumonia. INTERVAL HISTORY: Patient remains to be afebrile, Pt is breathing slightly comfortably. Denies having any chest pain. Occasional cough. No abdominal pain. No diarrhea. PHYSICAL EXAMINATION: Blood pressure 170/70 with a pulse of 90, temperature 98.1. He is 94% on 3 L nasal cannula. General description is an elderly male up in the bed in no distress. Respiratory system: Unlabored breathing, decreased intensity of breath sounds. No wheeze. Heart S1, S2. Regular rate and rhythm. Abdomen soft, no tenderness. LABS: reviewed DIAGNOSTIC IMPRESSION AND PLAN: The patient with fever concerning for pneumonia in this patient fever resolved with Rocephin, Zithromax, plan is for oral Ceftin on discharge to finish a course of therapy. Continue supportive care.
--- NOTE | 2021-08-21 13:36 | P.CNOR ---
History of Present Illness - [facility] Consult date: 08/21/21 Requesting physician: Nancy Connor Consult reason: back pain (Acute on chronic low back pain), neck pain (Chronic cervical pain) History of present illness: Patient is a pleasant 85-year-old male who is seen and examined bedside for further evaluation of his cervical spine and lumbar spine. He initially presented to the emergency department for further evaluation after increased pain with abdominal pain, cough, and fever. He also had some altered mental status during his admission. He is being seen by multiple medical providers including medicine, infectious disease, pulmonology, and neurology. Imaging taken during his admission showed evidence of lumbar spinal stenosis. He did have exacerbation of chronic low back pain. Consultation was placed in this regard. Patient states that his admission to the hospital he was having increased low back pain compared to his chronic low back pain. He states this has improved since his admission. He denies any lower extremity weakness or radiculopathy bilaterally. He states he does have chronic ongoing low back pain which can be worse with activities. He has a history of previous surgical intervention of his lumbar spine. He also has history of neural stimulator placement. He states both of these surgeries have been performed multiple years ago. He is unsure who performed these surgeries. He he has not used his neurostimulator in years. He does admit to some chronic cervical pain as well. He denies any upper extremity weakness or radiculopathy bilaterally. He states he has followed with another surgeon in regards to his spine did not recommend further surgical intervention in his lumbar spine. He states he would like to avoid any further surgical intervention of his lumbar spine. He does continue to receive narcotic pain medication in the outpatient setting by his primary care provider. He would be willing to do consultation with pain management if his symptoms are not controlled in the outpatient setting there is primary care provider. He has been clear for discharge from a medical standpoint. He is planning for discharge to rehabilitation facility today. Patient other medical diagnoses include BPH and history of nicotine dependence. He is been being treated for acute pulmonary embolism, acute hypoxic respiratory failure, acute community acquired pneumonia, fever, acute metabolic encephalopathy, acute kidney injury, and abdominal pain. Past Medical History Past Medical History: Hypertension History of Any Multi-Drug Resistant Organisms: None Reported Past Surgical History: Back Surgery Past Psychological History: No Psychological Hx Reported Smoking Status: Former smoker Past Alcohol Use History: None Reported Past Drug Use History: None Reported - Past Family History Father History Unknown: Yes Medications and Allergies Home Medications Medication Instructions Recorded Confirmed Type Simvastatin [Zocor] 20 mg PO DAILY 08/14/21 08/14/21 History Tamsulosin HCl [Flomax] 0.4 mg PO DAILY 08/14/21 08/14/21 History Acetaminophen Tab [Tylenol] 650 mg PO Q6HR PRN tab 08/20/21 Rx Apixaban [Eliquis Starter Pack 5 - 10 mg PO DIRECTED 30 Days 08/20/21 Rx (for VTE)] #1 each Apixaban [Eliquis] 5 mg PO BID tab 08/20/21 Rx Cefuroxime Axetil [Ceftin] 500 mg PO BID 5 Days #10 tab 08/20/21 Rx HYDROcodone/APAP 10-325MG [[place] 1 tab PO QID PRN #12 tab 08/20/21 Rx 10-325] Ipratropium-Albuterol Nebulize 3 ml INHALATION Q4H PRN ml 08/20/21 Rx [Duoneb 0.5 mg-3 mg/3 ml Soln] Ipratropium-Albuterol Nebulize 3 ml INHALATION RT-QID ml 08/20/21 Rx [Duoneb 0.5 mg-3 mg/3 ml Soln] QUEtiapine [SEROquel] 25 mg PO HS tab 08/20/21 Rx Cyanocobalamin (Vitamin B-12) 1,000 mcg PO DAILY #0 tablet 08/21/21 Rx [Vitamin B-12] Allergies Allergy/AdvReac Type Severity Reaction Status Date / Time No Known Allergies Allergy Verified 08/14/21 23:16 Physical Examination Physical exam: Patient is awake, alert, and oriented 3 Vital signs stable Good chest excursion with deep inspiration and expiration Abdomen soft nontender Examination of lumbar spine reveals skin is intact with no abrasions, lacerations, or bruises; no erythema, purulence or signs of infection Evidence of well-healed midline incision at the lower thoracic spine Evidence of a well-healed midline incision of the upper lumbar spine Dorsiflexion, plantarflexion, and extensor hallucis longus positive sustained bilaterally Lower extremity strength 5/5 bilaterally Patellar reflex 1+ bilaterally and Achilles reflexes 1+ bilaterally No lower extremity hyperreflexia bilaterally Straight leg test negative bilateral lower extremities No signs or symptoms of DVT; no calf pain No pain with internal and external rotation of the hips bilaterally Patient is able to lift legs off the bed independently without difficulty Neurovascularly intact Examination of the cervical spine reveals skin is intact with no abrasions, lacerations, or bruises; no erythema, purulence or signs of infection Adequate range of motion of the cervical spine with adequate flexion, extension, and bilateral rotation 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 strength, thumb strength, interosseous strength, biceps strength, triceps s trength, and shoulder strength positive sustained bilaterally Upper extremity strength 5/5 bilaterally Evidence of multiple tattoos of the bilateral lower extremities Evidence of tattoo over the left lower extremity Results Pertinent studies: CT of the cervical spine, thoracic spine, and lumbar spine taken on 08/19/2021: C3-4, C4-5, C5-6, and C6-7 uncovertebral joint hypertrophy with foraminal stenosis; some kyphosis of the upper cervical spine; 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; thoracic degenerative disc disease; lumbar degenerative scoliosis; L2-3 retrolisthesis, endplate spurring at the inferior endplate of L2 with severe foraminal stenosis and spinal canal stenosis; evidence of a laminectomy defect at L3; L3-4 moderate right and severe left neuroforaminal stenosis and thecal sac compression; L4-5 facet hypertrophy and ligamentum flavum laxity with disc bulging resulting spinal, narrowing; L5-S1 posterior endplate spurring and retrolisthesis with neuroforaminal stenosis; Degenerative disc disease throughout the lumbar spine with vacuum disc phenomenon - Labs Labs: Microbiology - Last 24 Hours (Table) 08/16/21 14:06 Blood Culture - Preliminary Blood No Growth after 96 hours H & H 08/14/21 08/16/21 08/17/21 Range/Units 21:47 06:58 11:52 Hgb 12.3 L 9.5 L D 10.2 L (13.0-17.5) gm/dL Hct 36.3 L 29.0 L 30.4 L (39.0-53.0) % 08/18/21 08/19/21 Range/Units 11:30 07:42 Hgb 9.9 L 9.7 L (13.0-17.5) gm/dL Hct 30.0 L 29.6 L (39.0-53.0) % Result Diagrams: 08/19/21 07:42 08/19/21 07:42 Assessment and Plan Assessment: Assessment: Chronic cervical pain Acute on chronic low back pain History of lumbar surgery History of neurostimulator placement Lumbar degenerative disc disease throughout the lumbar spine Lumbar vacuum disc phenomenon Lumbar degenerative scoliosis Lumbar spinal stenosis L2-3 retrolisthesis L5-S1 retrolisthesis Lumbar facet arthropathy Cervical stenosis Thoracic degenerative disc disease Acute pulmonary embolism Acute hypoxic respiratory failure Acute community acquired pneumonia Fever Acute metabolic encephalopathy Acute kidney injury Abdominal pain (1) Lumbar scoliosis Status: Acute Code(s): M41.9 - SCOLIOSIS, UNSPECIFIED SNOMED Code(s): 520644379 (2) Spondylolisthesis, lumbar region Status: Acute Code(s): M43.16 - SPONDYLOLISTHESIS, LUMBAR REGION SNOMED Code(s): 307880688426152 (3) Lumbar degenerative disc disease Status: Acute Code(s): M51.36 - OTHER INTERVERTEBRAL DISC DEGENERATION, LUMBAR REGION SNOMED Code(s): 96567680 (4) Spondylolisthesis, lumbosacral region Status: Acute Code(s): M43.17 - SPONDYLOLISTHESIS, LUMBOSACRAL REGION SNOMED Code(s): 402911474 (5) Lumbar spinal stenosis Status: Acute Code(s): M48.061 - SPINAL STENOSIS, LUMBAR REGION WITHOUT NEUROGENIC TREVOR SNOMED Code(s): 54743242 (6) Lumbar facet arthropathy Status: Acute Code(s): M47.816 - SPONDYLOSIS W/O MYELOPATHY OR RADICULOPATHY, LUMBAR REGION SNOMED Code(s): 728172645 (7) Acute exacerbation of chronic low back pain Status: Acute Code(s): M54.50 - ; G89.29 - OTHER CHRONIC PAIN SNOMED Code(s): 632998286 (8) Chronic cervical pain Status: Acute Code(s): M54.2 - CERVICALGIA; G89.29 - OTHER CHRONIC PAIN SNOMED Code(s): 2654985859842 (9) Cervical stenosis of spinal canal Status: Acute Code(s): M48.02 - SPINAL STENOSIS, CERVICAL REGION SNOMED Code(s): 78752694 (10) Thoracic degenerative disc disease Status: Acute Code(s): M51.34 - OTHER INTERVERTEBRAL DISC DEGENERATION, THORACIC REGION SNOMED Code(s): 88991600 (11) History of lumbar surgery Status: Acute Code(s): Z98.890 - OTHER SPECIFIED POSTPROCEDURAL STATES SNOMED Code(s): 830996960 (12) Pulmonary embolism Status: Acute Code(s): I26.99 - OTHER PULMONARY EMBOLISM WITHOUT ACUTE COR PULMONALE SNOMED Code(s): 65599165 (13) Acute metabolic encephalopathy Status: Acute Code(s): G93.41 - METABOLIC ENCEPHALOPATHY SNOMED Code(s): 59311372 (14) Acute kidney injury Status: Acute Code(s): N17.9 - ACUTE KIDNEY FAILURE, UNSPECIFIED SNOMED Code(s): 26972456 (15) Abdominal pain Status: Acute Code(s): R10.9 - UNSPECIFIED ABDOMINAL PAIN SNOMED Code(s): 85224063 (16) Fever Status: Acute Code(s): R50.9 - FEVER, UNSPECIFIED SNOMED Code(s): 156963794 Plan: Plan: 1. Patient does have history of chronic cervical pain and lumbar pain. He states that his admission he was having worsening low back pain. Imaging was taken at that time which it show significant changes at his lumbar spine. He feels during his admission his acute on chronic low back pain has improved. He is not currently experiencing significant cervical pain. He denies any upper extremity weakness or radiculopathy bilaterally. He denies any lower extremity weakness or radiculopathy bilaterally. He has a history of previous surgical in tervention of his lumbar spine. He has a history of previous neurostimulator placement. At this time, he would like to continue with conservative treatment options. He does not wish to discuss the possibility of surgical intervention at his lumbar spine. We did discuss his degenerative changes in significant detail. We did discuss he could continue to follow his primary care provider in the outpatient setting for further evaluation and treatment. He does receive narcotic pain medication from his primary care provider. If he were to fail outpatient conservative treatment through his primary care provider, he could be a candidate to follow-up with Dr Foss in pain management for further evaluation and discuss further treatment options. At this time, we are not currently planning for further imaging or treatment during his admission to the hospital. We'll plan to have him follow up on as needed in the outpatient on an as needed basis as we are not planning for any invasive treatment. Patient feels this is a good plan of care. He does feel he is ready for discharge to a rehabilitation facility today. Patient is clear for discharge from an orthopedic spine standpoint. Patient may follow-up with Jose Ramon Dunn PA-C or Dr. John Patel at [facility] on as-needed basis following discharge. 2. Patient will continue be seen in exam by other medical providers prior to his discharge today. Time with Patient: Greater than 30 (Including obtaining history, physical examination, reviewing of imaging, and dictation.)
== END 2021-08-21 12:25 | DRG 193 ==
LOC: EC 19:27 → 4SSUR 08-15 01:33 → 3SCARD 08-15 13:43
PROVIDERS: ADMIT Family Medicine; ATTEND Family Medicine
DX: J18.9 Pneumonia, unspecified organism (principal); I26.99 Other pulmonary embolism without acute cor pulmonale; J96.01 Acute respiratory failure with hypoxia; G93.41 Metabolic encephalopathy; J44.0 Chronic obstructive pulmonary disease with (acute) lower respiratory infection; J98.11 Atelectasis; N17.9 Acute kidney failure, unspecified; Q78.2 Osteopetrosis; K57.30 Diverticulosis of large intestine without perforation or abscess without bleeding; E78.5 Hyperlipidemia, unspecified; F03.90 Unspecified dementia, unspecified severity, without behavioral disturbance, psychotic disturbance, mood disturbance, and anxiety; F41.9 Anxiety disorder, unspecified; G89.29 Other chronic pain; I10 Essential (primary) hypertension; K59.00 Constipation, unspecified; M41.86 Other forms of scoliosis, lumbar region; M43.16 Spondylolisthesis, lumbar region; M47.816 Spondylosis without myelopathy or radiculopathy, lumbar region; M48.02 Spinal stenosis, cervical region; M48.061 Spinal stenosis, lumbar region without neurogenic claudication; M51.34 Other intervertebral disc degeneration, thoracic region; M51.36 Other intervertebral disc degeneration, lumbar region; Z20.822 Contact with and (suspected) exposure to COVID-19; N40.0 Benign prostatic hyperplasia without lower urinary tract symptoms; Z79.01 Long term (current) use of anticoagulants; Z79.899 Other long term (current) drug therapy; Z87.891 Personal history of nicotine dependence; Z96.82 Presence of neurostimulator
CPT/HCPCS: 36415; 70450; 71045; 71275; 72125; 72128; 72131; 74176; 76705; 78580; 80048; 80053; 80306; 81003; 82140; 82150; 82607; 82746; 83605; 83615; 83690; 83735; 84100; 84145; 84443; 84484; 85025; 85379; 85730; 86140; 87040; 87502; 87634; 87635; 93970; 94640; 94760; 96361; 96374; 96375; 99285